=== PATIENT | male | born 1990 | race Caucasian/White ===

== ENCOUNTER 2020-02-23 19:10 | Inpatient (IN) | payer BC ==
[2020-02-23] MEDS ORDERED: ACETAMINOPHEN TAB 325 MG TAB PO STA (19:24)
[2020-02-23] MEDS: SODIUM CHLORIDE 0.9% 500 ML 500 ML IV SCH ×3 (20:17→20:22)
[2020-02-23] MEDS ORDERED: VANCOMYCIN IV PER PHARMACY 1 EACH MISC MISCELLANE PRN (20:18)
[2020-02-23] MEDS: SODIUM CHLORIDE 0.9% 1,000 ML IV SCH (20:24)
[2020-02-23 20:30] LABS: Appearance,Urine Clear (Clear); Basophils # (A) 0.1 k/uL (0-0.2); Basophils % (A) 0 %; Bilirubin,Urine Negative (Negative); Blood,Urine Negative (Negative); Color,Urine Yellow; Eosinophils # (A) 0.2 k/uL (0-0.7); Eosinophils % (A) 1 %; Glucose,Urine (UA) Negative (Negative); HCT 43.7 % (39.0-53.0); HGB 14.2 gm/dL (13.0-17.5); Ketones,Urine Negative (Negative); Leukocyte Esterase,Urine Negative (Negative); Lymphocytes # (A) 3.5 k/uL (1.0-4.8); Lymphocytes % (A) 16 %; MCH 28.3 pg (25.0-35.0); MCHC 32.5 g/dL (31.0-37.0); MCV 87.2 fL (80.0-100.0); Mean Platelet Volume 6.5; Monocytes # (A) 1.2 k/uL (0-1.0); Monocytes % (A) 6 %; Neutrophils # (A) 16.9 k/uL (1.3-7.7); Neutrophils % (A) 76 %; Nitrite,Urine Negative (Negative); PH, Urine 5.5 (5.0-8.0); Platelet Count 355 k/uL (150-450); Protein,Urine Trace (Negative); RBC 5.01 m/uL (4.30-5.90); RDW 12.9 % (11.5-15.5); Specific Gravity,Urine 1.025 (1.001-1.035); Urobilinogen,Urine <2.0 mg/dL (<2.0); WBC 22.3 k/uL (3.8-10.6)
[2020-02-23] MEDS ORDERED: VANCOMYCIN 2,000 MG in SODIUM CHLORIDE 0.9% 500 ML 500 ML IVPB ONE (20:30)
[2020-02-23 20:39] LABS: ALT 24 U/L (4-49); AST 24 U/L (17-59); African American GFR (CKD) >90 (>60 ml/min/1.73 sqM); Albumin 4.4 g/dL (3.5-5.0); Alkaline Phosphatase 82 U/L (38-126); Anion Gap 8 mmol/L; Blood Urea Nitrogen 14 mg/dL (9-20); Calcium 9.4 mg/dL (8.4-10.2); Carbon Dioxide 24 mmol/L (22-30); Chloride 106 mmol/L (98-107); Glucose 116 mg/dL (74-99); Non-African American GFR(CKD) >90 (>60 ml/min/1.73 sqM); Potassium 3.9 mmol/L (3.5-5.1); Sodium 138 mmol/L (137-145); Total Bilirubin 0.9 mg/dL (0.2-1.3); Total Protein 7.5 g/dL (6.3-8.2)
[2020-02-23 20:40] LABS: INR 0.9 (<1.2); Partial Thromboplastin Time 26.4 sec (22.0-30.0); Prothrombin Time 9.5 sec (9.0-12.0)
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
--- NOTE | 2020-02-23 22:03 | CT ---
EXAMINATION TYPE: CT lower leg LT w con DATE OF EXAM: 02/23/2020 HISTORY: Left anterior tibia pain and infection. Technique: Department protocol with axial and sagittal and coronal sequences, and multi planar 3-D im aging. Automated exposure control for dose reduction was used. CT DLP: 295.3 mGycm CONTRAST: Performed with IV Contrast, patient injected with 100ml mL of Isovue 300. COMPARISON: None FINDINGS: Imaging was obtained from the knee to the ankle. The skeletal structures have normal appearance. There is soft tissue swelling anterior to the proximal and mid tibia, with edematous reticulation thr oughout the anterior subcutaneous cutaneous adipose compartment. The anterior muscular compartment al so appears mildly edematous. Suggest continued clinical surveillance for the possible development of compartment syndrome. There is no focal fluid collection. There is no soft tissue emphysema. There is no abnormal contrast enhancement. The vasculature is opacified and unremarkable as seen. IMPRESSION: 1. CT FINDINGS CONSISTENT WITH A CLINICAL DIAGNOSIS OF CELLULITIS, DISCUSSED. 2. NORMAL TIBIA AND FIBULA.
[2020-02-23] MEDS ORDERED: NALOXONE 0.4 MG/ML 1 ML VIAL IV PRN (22:12)
[2020-02-23] MEDS ORDERED: IBUPROFEN 600 MG TAB PO STA (22:14)
[2020-02-24] MEDS: ACETAMINOPHEN TAB 325 MG TAB PO PRN ×3 (04:57→15:54)
[2020-02-24] MEDS: SODIUM CHLORIDE 0.9% 1,000 ML IV SCH ×3 (04:58→23:28)
[2020-02-24] MEDS ORDERED: VANCOMYCIN 2,000 MG in SODIUM CHLORIDE 0.9% 500 ML 500 ML IVPB SCH (06:00)
[2020-02-24 08:50] LABS: African American GFR (CKD) >90 (>60 ml/min/1.73 sqM); Non-African American GFR(CKD) >90 (>60 ml/min/1.73 sqM)
[2020-02-24] MEDS: VANCOMYCIN 2,000 MG in SODIUM CHLORIDE 0.9% 500 ML 500 ML IVPB SCH ×2 (11:18→20:13)
--- NOTE | 2020-02-24 12:16 | US ---
EXAMINATION TYPE: US venous doppler duplex LE LT DATE OF EXAM: 02/24/2020 11:21 AM COMPARISON: NONE CLINICAL HISTORY: r/o dvt. Infection of LLE following cut. SIDE PERFORMED: Left TECHNIQUE: The lower extremity deep venous system is examined utilizing real time linear array sonog ashley with graded compression, doppler sonography and color-flow sonography. VESSELS IMAGED: External Iliac Vein (EIV) Common Femoral Vein Deep Femoral Vein Greater Saphenous Vein * Femoral Vein Popliteal Vein Small Saphenous Vein * Proximal Calf Veins (* superficial vessels) There is normal flow, compressibility, vascular waveforms. Left Leg: Negative for DVT IMPRESSION: No evident deep venous arthrosis at or above the left knee.
[2020-02-24 17:41] LABS: HCT 39.5 % (39.0-53.0); MCH 29.1 pg (25.0-35.0); MCHC 32.8 g/dL (31.0-37.0); MCV 88.6 fL (80.0-100.0); Mean Platelet Volume 6.3; Platelet Count 331 k/uL (150-450); RBC 4.46 m/uL (4.30-5.90); RDW 12.8 % (11.5-15.5); WBC 22.9 k/uL (3.8-10.6)
[2020-02-24] MEDS ORDERED: CYCLOBENZAPRINE 10 MG TAB PO PRN (18:02)
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
[2020-02-24] MEDS: HEPARIN SODIUM,PORCINE 5,000 UNIT/ML 1 ML VIAL SQ SCH (21:18)
[2020-02-24] MEDS: FAMOTIDINE 20 MG/2 ML VIAL IV SCH (21:18)
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
[2020-02-25] MEDS: VANCOMYCIN 2,000 MG in SODIUM CHLORIDE 0.9% 500 ML 500 ML IVPB SCH ×3 (03:26→19:08)
[2020-02-25 07:58] LABS: African American GFR (CKD) >90 (>60 ml/min/1.73 sqM); Anion Gap 7 mmol/L; Blood Urea Nitrogen 7 mg/dL (9-20); Calcium 8.8 mg/dL (8.4-10.2); Carbon Dioxide 24 mmol/L (22-30); Chloride 107 mmol/L (98-107); Creatine Kinase 59 U/L (55-170); Glucose 97 mg/dL (74-99); Non-African American GFR(CKD) >90 (>60 ml/min/1.73 sqM); Sodium 138 mmol/L (137-145)
[2020-02-25 08:17] LABS: Basophils # (A) 0.1 k/uL (0-0.2); Basophils % (A) 0 %; Eosinophils # (A) 0.2 k/uL (0-0.7); Eosinophils % (A) 1 %; HCT 38.2 % (39.0-53.0); HGB 12.4 gm/dL (13.0-17.5); Lymphocytes # (A) 3.6 k/uL (1.0-4.8); Lymphocytes % (A) 18 %; MCHC 32.4 g/dL (31.0-37.0); MCV 89.4 fL (80.0-100.0); Mean Platelet Volume 6.6; Monocytes # (A) 1.1 k/uL (0-1.0); Monocytes % (A) 6 %; Neutrophils % (A) 74 %; Platelet Count 309 k/uL (150-450); RBC 4.28 m/uL (4.30-5.90); RDW 12.9 % (11.5-15.5); WBC 20.2 k/uL (3.8-10.6)
[2020-02-25 08:21] LABS: C Reactive Protein 166.6 mg/L (<10.0)
[2020-02-25] MEDS: FAMOTIDINE 20 MG/2 ML VIAL IV SCH ×2 (08:25→20:39)
[2020-02-25] MEDS: HEPARIN SODIUM,PORCINE 5,000 UNIT/ML 1 ML VIAL SQ SCH ×2 (08:25→20:40)
[2020-02-25] MEDS: SODIUM CHLORIDE 0.9% 1,000 ML IV SCH ×3 (08:26→20:45)
[2020-02-25] MEDS: ACETAMINOPHEN TAB 325 MG TAB PO PRN ×2 (12:06→18:05)
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
[2020-02-25] MEDS ORDERED: VANCOMYCIN TROUGH DUE 1 EACH MISC MISCELLANE ONE (18:00)
--- NOTE | 2020-02-25 19:50 | P.PN ---
Subjective this is a pleasant 29 years old maleno significant past medical history who presents with 2 days left leg swelling, warmth and tenderness, and there is a scraping wound in the middle of the left leg. Patient reports he had a trauma about one month ago with machine but his legs were fine until 2 days ago. He still have some linear streak wound which is superficial in the middle of left leg about 3 inches in length and is horizontal with some area widely open with no discharge, it looks healing however the entire left leg and the distal part of the thigh is swollen, red, warm and tender Left foot looks not swollen with no tenderness or erythema,, no loss of function and no numbness and dorsalis pedis present. He denies chest pain or dyspnea and no other complaints He denies smoking, alcohol or illicit drugs Showing leukocytosis of 22.9K, rest of CBC, INR and BMP is unremarkable. Liver enzymes not elevated. Urinalysis is no suspicious of infection. D-dimer is negative at 0.48 Venous Doppler is negative for the left lower extremity for DVT CT findings consistent with clinical diagnosis of cellulitis Patient is improving regarding his left lower leg cellulitis, swelling which was above the knee yesterday it is coming about 3-4 finger width below the knee with chest tenderness, warmth and redness. Doppler of the lower extremity is negative for DVT Infectious disease on the case and patient is on cefazolin and vancomycin All his questions were answered Objective - Vital Signs Vital signs: Vital Signs Temp 98.3 F 02/25/20 14:32 Pulse 88 02/25/20 14:32 Resp 16 02/25/20 19:05 BP 137/88 02/25/20 14:32 Pulse Ox 96 02/25/20 14:32 Intake & Output 02/25/20 02/25/20 02/26/20 06:59 18:59 06:59 Intake Total 1540 Output Total 500 Balance 1540 -500 Intake: Intake, IV Titration 1540 Amount Sodium Chloride 0.9% 1, 1040 000 ml @ 130 mls/hr IV . [id number] [facility] Rx#:[id number] Vancomycin 2,000 mg In 500 Sodium Chloride 0.9% 500 ml 500 ml @ 167 mls/hr IVPB Q8H [facility] Rx#: [id number] Output: Urine 500 Other: Voiding Method Toilet Toilet Toilet Urinal # Voids 3 2 - Exam GENERAL: The patient is alert and oriented x3, not in any acute distress. Well developed, well nourished. HEENT: Pupils are round and equally reacting to light. EOMI. No scleral icterus. No conjunctival pallor. Normocephalic, atraumatic. No pharyngeal erythema. No thyromegaly. CARDIOVASCULAR: S1 and S2 present. No murmurs, rubs, or gallops. PULMONARY: Chest is clear to auscultation, no wheezing or crackles. ABDOMEN: Soft, nontender, nondistended, normoactive bowel sounds. No palpable organomegaly. MUSCULOSKELETAL: No joint swelling or deformity. -EXTREMITIES: No cyanosis, clubbing, or pedal edema. Improving cellulitis of the left lower leg with less swelling, tenderness, warmth and redness NEUROLOGICAL: Gross neurological examination did not reveal any focal deficits. SKIN: No rashes. no petechiae. - Labs CBC & Chem 7: 02/25/20 06:58 02/25/20 06:58 Labs: Abnormal Lab Results - Last 24 Hours (Table) 02/25/20 02/25/20 Range/Units 06:58 06:58 WBC 20.2 H (3.8-10.6) k/uL RBC 4.28 L (4.30-5.90) m/uL Hgb 12.4 L (13.0-17.5) gm/dL Hct 38.2 L (39.0-53.0) % Neutrophils # 15.0 H (1.3-7.7) k/uL Monocytes # 1.1 H (0-1.0) k/uL BUN 7 L (9-20) mg/dL C-Reactive Protein 166.6 H (<10.0) mg/L Microbiology - Last 24 Hours (Table) 02/23/20 21:27 Gram Stain - Final Leg - Right Wound Culture - Final Staphylococcus aureus 02/23/20 20:05 Blood Culture - Preliminary Blood No Growth after 24 hours 02/23/20 20:05 Blood Culture - Preliminary Blood No Growth after 24 hours Assessment and Plan Assessment: Left leg cellulitis Plan: This is a pleasant 29 years old male who presents with left leg cellulitis. Continue cefazolin and vancomycin as per ID team recommendation. Follow-up labs Labs and medication were reviewed.. Continue same treatment. Continue with symptomatic treatment. Resume home medication. Monitor lytes and vitals. DVT and GI prophylaxis. Further recommendations of the clinical course of the patient DVT prophylaxis: Subcutaneous heparin GI Prophylaxis: Pepcid
[2020-02-25] MEDS ORDERED: diphenhydrAMINE 25 MG CAP PO PRN (20:12)
[2020-02-26] MEDS: SODIUM CHLORIDE 0.9% 1,000 ML IV SCH ×3 (03:32→18:15)
[2020-02-26] MEDS: VANCOMYCIN 2,000 MG in SODIUM CHLORIDE 0.9% 500 ML 500 ML IVPB SCH ×2 (03:34→11:42)
[2020-02-26 07:55] LABS: African American GFR (CKD) >90 (>60 ml/min/1.73 sqM); Non-African American GFR(CKD) >90 (>60 ml/min/1.73 sqM)
[2020-02-26] MEDS: HEPARIN SODIUM,PORCINE 5,000 UNIT/ML 1 ML VIAL SQ SCH ×2 (08:32→20:09)
[2020-02-26] MEDS: FAMOTIDINE 20 MG/2 ML VIAL IV SCH ×2 (08:32→20:09)
[2020-02-26] MEDS: valACYclovir 500 MG TAB PO SCH ×3 (11:41→20:12)
--- NOTE | 2020-02-26 14:36 | US ---
EXAMINATION TYPE: US extremity nonvasc mass LT DATE OF EXAM: 02/26/2020 COMPARISON: NONE CLINICAL HISTORY: r/o abscess . Patient had injury to top of left byrne where skin in red, some areas have scabbed over but there remains a small open wound with purulent material seen. Complex fluid collection that spans the width of area of injury with mobile debris seen, measuring at least 5 cm x 0.8 cm. There is no internal color Doppler flow within this fluid collection. There is mild overlying subcutaneous edema. IMPRESSION: In region of left byrne open wound, there is a elongated fluid collection with mobile arnaldo ris most likely representing abscess.
--- NOTE | 2020-02-26 17:40 | P.PN ---
Subjective this is a pleasant 29 years old maleno significant past medical history who presents with 2 days left leg swelling, warmth and tenderness, and there is a scraping wound in the middle of the left leg. Patient reports he had a trauma about one month ago with machine but his legs were fine until 2 days ago. He still have some linear streak wound which is superficial in the middle of left leg about 3 inches in length and is horizontal with some area widely open with no discharge, it looks healing however the entire left leg and the distal part of the thigh is swollen, red, warm and tender Left foot looks not swollen with no tenderness or erythema,, no loss of function and no numbness and dorsalis pedis present. He denies chest pain or dyspnea and no other complaints He denies smoking, alcohol or illicit drugs Showing leukocytosis of 22.9K, rest of CBC, INR and BMP is unremarkable. Liver enzymes not elevated. Urinalysis is no suspicious of infection. D-dimer is negative at 0.48 Venous Doppler is negative for the left lower extremity for DVT CT findings consistent with clinical diagnosis of cellulitis 02/25/20 Patient is improving regarding his left lower leg cellulitis, swelling which was above the knee yesterday it is coming about 3-4 finger width below the knee with chest tenderness, warmth and redness. Doppler of the lower extremity is negative for DVT Infectious disease on the case and patient is on cefazolin and vancomycin All his questions were answered 02/26/20 his left lower extremity cellulitis is improving, and there is suspicion for fluctuant swelling so ultrasound of the lower extremities ordered to rule out a bscess He has some Vscicuelar rash on the right side of his face as well as eyebrow on the right cheek, suspicious for herpes zoster and patient was started on Valtrex Objective - Vital Signs Vital signs: Vital Signs Temp 97.8 F 02/26/20 14:53 Pulse 89 02/26/20 14:53 Resp 17 02/26/20 14:53 BP 133/85 02/26/20 14:53 Pulse Ox 96 02/26/20 14:53 Intake & Output 02/25/20 02/26/20 02/26/20 18:59 06:59 18:59 Output Total 500 750 Balance -500 -750 Output: Urine 500 750 Other: Voiding Method Toilet Toilet Toilet Urinal Urinal # Voids 2 1 2 # Bowel Movements 1 - Exam GENERAL: The patient is alert and oriented x3, not in any acute distress. Well developed, well nourished. HEENT: Pupils are round and equally reacting to light. EOMI. No scleral icterus. No conjunctival pallor. Normocephalic, atraumatic. No pharyngeal erythema. No thyromegaly. CARDIOVASCULAR: S1 and S2 present. No murmurs, rubs, or gallops. PULMONARY: Chest is clear to auscultation, no wheezing or crackles. ABDOMEN: Soft, nontender, nondistended, normoactive bowel sounds. No palpable organomegaly. MUSCULOSKELETAL: No joint swelling or deformity. -EXTREMITIES: No cyanosis, clubbing, or pedal edema. Improving cellulitis of the left lower leg with less swelling, tenderness, warmth and redness NEUROLOGICAL: Gross neurological examination did not reveal any focal deficits. SKIN: No rashes. no petechiae. - Labs CBC & Chem 7: 02/25/20 06:58 02/26/20 07:30 Labs: Microbiology - Last 24 Hours (Table) 02/23/20 20:05 Blood Culture - Preliminary Blood No Growth after 48 hours 02/23/20 20:05 Blood Culture - Preliminary Blood No Growth after 48 hours 02/23/20 21:27 Gram Stain - Final Leg - Right Wound Culture - Final Staphylococcus aureus Assessment and Plan Assessment: Left leg cellulitis Right facial herpes zoster Plan: This is a pleasant 29 years old male who presents with left leg cellulitis. Continue cefazolin and vancomycin as per ID team recommendation. Follow-up lab s. Add Valtrex Labs and medication were reviewed.. Continue same treatment. Continue with symptomatic treatment. Resume home medication. Monitor lytes and vitals. DVT and GI prophylaxis. Further recommendations of the clinical course of the patient DVT prophylaxis: Subcutaneous heparin GI Prophylaxis: Pepcid
--- NOTE | 2020-02-26 21:54 | PN ---
PROGRESS NOTE DATE OF SERVICE: 02/26/2020 REASON FOR FOLLOWUP: 1. Left leg abscess and cellulitis. 2. Facial rash with question of herpes. INTERVAL HISTORY: The patient is currently afebrile. The left leg pain and swelling is minimally decreased. Still painful to walk on it. Denies having any chest pain, shortness of breath or cough, abdominal pain. Has developed a rash on the right side of the face and the right forehead area. The patient mentioned he usually gets rash when he is stressed out and the previous diagnosis of herpes. EXAM: His blood pressure is 163/74 with a pulse of 90, temperature of 99.6. He is 98% on room air. General description is a middle-aged male lying in bed in no distress. Respiratory system: Unlabored breathing, clear to auscultation anteriorly. Heart S1, S2. Regular rate and rhythm. Abdomen soft, no tenderness. Left leg swelling and redness minimally decreased, no drainage. Examination of the skin, he did have rash to the right cheek and the right eyebrow area. LABS: No CBC was done today. Creatinine 0.95. Ultrasound has been suggestive of abscess and local culture with MSSA blood culture negative. DIAGNOSTIC IMPRESSION AND PLAN: 1. Patient with left lower extremity abscess and cellulitis. CT was negative. However, ultrasound suspicious for an abscess. Surgery has been consulted. Antibiotic will be adjusted to cefazolin 2 grams q.8 hours. Vancomycin discontinued with culture positive for MSSA. 2. Rash with concern for possible herpes. Swab has been obtained for ( ) and PCR. ( ) see clinical response to it. MMODL / IJN: [id number] /
[2020-02-27] MEDS: SODIUM CHLORIDE 0.9% 1,000 ML IV SCH ×3 (00:49→23:52)
[2020-02-27] MEDS: FAMOTIDINE 20 MG/2 ML VIAL IV SCH ×2 (08:14→22:00)
[2020-02-27] MEDS: HEPARIN SODIUM,PORCINE 5,000 UNIT/ML 1 ML VIAL SQ SCH ×2 (08:14→22:00)
[2020-02-27] MEDS: valACYclovir 500 MG TAB PO SCH ×3 (08:15→22:01)
[2020-02-27 08:34] LABS: Basophils # (A) 0.1 k/uL (0-0.2); Basophils % (A) 1 %; Eosinophils # (A) 0.4 k/uL (0-0.7); Eosinophils % (A) 4 %; HCT 40.5 % (39.0-53.0); HGB 12.9 gm/dL (13.0-17.5); Lymphocytes # (A) 2.7 k/uL (1.0-4.8); Lymphocytes % (A) 24 %; MCH 28.9 pg (25.0-35.0); MCHC 31.9 g/dL (31.0-37.0); MCV 90.5 fL (80.0-100.0); Mean Platelet Volume 6.8; Monocytes # (A) 0.5 k/uL (0-1.0); Monocytes % (A) 5 %; Neutrophils # (A) 7.1 k/uL (1.3-7.7); Neutrophils % (A) 65 %; Platelet Count 378 k/uL (150-450); RBC 4.47 m/uL (4.30-5.90); RDW 12.8 % (11.5-15.5)
[2020-02-27 08:37] LABS: African American GFR (CKD) >90 (>60 ml/min/1.73 sqM); Anion Gap 10 mmol/L; Blood Urea Nitrogen 10 mg/dL (9-20); Calcium 9.2 mg/dL (8.4-10.2); Carbon Dioxide 21 mmol/L (22-30); Chloride 109 mmol/L (98-107); Glucose 92 mg/dL (74-99); Non-African American GFR(CKD) >90 (>60 ml/min/1.73 sqM); Potassium 4.4 mmol/L (3.5-5.1); Sodium 140 mmol/L (137-145)
[2020-02-27] MEDS ORDERED: LIDOCAINE 1% INJ 10MG/ML (20 ML MDV) SQ ONE (09:47)
[2020-02-27] MEDS ORDERED: VANCOMYCIN TROUGH DUE 1 EACH MISC MISCELLANE ONE (10:00)
--- NOTE | 2020-02-27 11:48 | P.GSCN ---
History of Present Illness Consult date: 02/27/20 Reason for Consult: Left byrne abscess History of present illness: Patient hospitalized on 02/23 with complaints of left leg swelling and redness. Patient had a superficial laceration 1 month ago when he flipped his skid steer. States he was treated in the emergency department with skin glue. Thought was doing better. Only recently became more swollen and more painful. White blood cell count was significantly elevated on arrival. Had low-grade fevers 100.2 on arrival. Computed tomography scan of the leg showed no evidence of definite abscess or osteomyelitis. Venous Doppler normal. Patient then had ultrasound yesterday showing possible abscess with 5 x 1 cm fluid collection. Review of Systems The patient denies any acute changes in vision or hearing, no dysphagia or odynophagia, no chest pain or shortness of breath, no dysuria or hematuria, no headache, no runny nose, no rectal bleeding or melena, no unexplained weight loss Past Medical History Past Medical History: No Reported History History of Any Multi-Drug Resistant Organisms: None Reported Additional Past Surgical History / Comment(s): oral Past Anesthesia/Blood Transfusion Reactions: No Reported Reaction Past Psychological History: No Psychological Hx Reported Smoking Status: Never smoker Past Alcohol Use History: Occasional Past Drug Use History: None Reported Medications and Allergies Home Medications Medication Instructions Recorded Confirmed Type Acetaminophen [Tylenol] 1,000 mg PO Q6H PRN 02/23/20 02/23/20 History Cephalexin [Keflex] 500 mg PO Q6HR 02/23/20 02/23/20 History Cyclobenzaprine [Flexeril] 10 mg PO BID 02/23/20 02/23/20 History Ibuprofen [Motrin] 800 mg PO TID PRN 02/23/20 02/23/20 History Allergies Allergy/AdvReac Type Severity Reaction Status Date / Time Sulfa (Sulfonamide Allergy Unknown Verified 02/23/20 21:46 Antibiotics) Surgical - Exam Vital Signs Temp Pulse Resp BP Pulse Ox 100.0 F H 122 H 18 147/79 96 02/23/20 19:18 02/23/20 19:18 02/23/20 19:18 02/23/20 19:18 02/23/20 19:18 Physical exam: General: Well-developed, well-nourished HEENT: Normocephalic, sclerae nonicteric Abdomen: Nontender, nondistended Extremities: Swelling left anterolateral byrne with evidence of previous abrasion/laceration. Erythema and tenderness in that area. Some fluctuance along the medial aspect of the previous scar site. Neuro: Alert and oriented Results - Labs 02/27/20 07:43 02/27/20 07:43 Abnormal Lab Results - Last 24 Hours (Table) 02/27/20 02/27/20 Range/Units 07:43 07:43 WBC 11.0 H (3.8-10.6) k/uL Hgb 12.9 L (13.0-17.5) gm/dL Chloride 109 H (98-107) mmol/L Carbon Dioxide 21 L (22-30) mmol/L Microbiology - Last 24 Hours (Table) 02/23/20 20:05 Blood Culture - Preliminary Blood No Growth after 72 hours 02/23/20 20:05 Blood Culture - Preliminary Blood No Growth after 72 hours Diabetes panel 02/27/20 Range/Units 07:43 Sodium 140 (137-145) mmol/L Potassium 4.4 (3.5-5.1) mmol/L Chloride 109 H (98-107) mmol/L Carbon Dioxide 21 L (22-30) mmol/L BUN 10 (9-20) mg/dL Creatinine 0.97 (0.66-1.25) mg/dL Glucose 92 (74-99) mg/dL Calcium 9.2 (8.4-10.2) mg/dL Calcium panel 02/27/20 Range/Units 07:43 Calcium 9.2 (8.4-10.2) mg/dL Pituitary panel 02/27/20 Range/Units 07:43 Sodium 140 (137-145) mmol/L Potassium 4.4 (3.5-5.1) mmol/L Chloride 109 H (98-107) mmol/L Carbon Dioxide 21 L (22-30) mmol/L BUN 10 (9-20) mg/dL Creatinine 0.97 (0.66-1.25) mg/dL Glucose 92 (74-99) mg/dL Calcium 9.2 (8.4-10.2) mg/dL Adrenal panel 02/27/20 Range/Units 07:43 Sodium 140 (137-145) mmol/L Potassium 4.4 (3.5-5.1) mmol/L Chloride 109 H (98-107) mmol/L Carbon Dioxide 21 L (22-30) mmol/L BUN 10 (9-20) mg/dL Creatinine 0.97 (0.66-1.25) mg/dL Glucose 92 (74-99) mg/dL Calcium 9.2 (8.4-10.2) mg/dL Assessment and Plan (1) Abscess of left leg Narrative/Plan: 29-year-old male with developing abscess left leg after recent traumatic injury 1 month ago. Options reviewed. We'll proceed with incision and drainage at this time. Continue antibiotics. Risks of bleeding, infection, scarring reviewed. He understands and wishes to proceed. Current Visit: Yes Status: Acute Code(s): L02.416 - CUTANEOUS ABSCESS OF LEFT LOWER LIMB SNOMED Code(s): 693205414
[2020-02-27] MEDS: KETOROLAC 15 MG/ML 1 ML VIAL IVP SCH ×2 (11:49→17:16)
--- NOTE | 2020-02-27 11:50 | P.OP ---
Date of Procedure: 02/27/20 Procedure(s) Performed: PREOPERATIVE DIAGNOSIS: Left leg abscess POSTOPERATIVE DIAGNOSIS: Same PROCEDURE: Incision and drainage left leg abscess SURGEON: Danny EBL: 2 mL ANESTHESIA: Local COMPLICATIONS: None OPERATIVE PROCEDURE: Patient was kept in his room for the procedure. The anterior lateral aspect of the left leg was prepped and draped sterilely. The skin was localized with 1% lidocaine. Medially at the site of previous laceration there was a scab present that was excised sharply. This incision measured 2 x 0.6 cm. Entrance into a subcutaneous fluid collection occurred bluntly. The fluid was a cloudy serous appearance. Cultures were taken. Using a probe I was unable to identify tracking of this wound laterally and inferiorly along the entire tract of the previous scar. The pocket came right up to the skin surface at the lateral aspect of the scar site. That area was then localized and a counterincision was made measuring 1.5 cm in length. We then had a tunnel between our 2 incision sites. This was irrigated with saline. Some purulence was identified. Some necrotic fat was also seen coming from the irrigation site. The wound was then packed with iodophor gauze. DISPOSITION: Stable
--- NOTE | 2020-02-27 21:56 | P.PN ---
Subjective this is a pleasant 29 years old maleno significant past medical history who presents with 2 days left leg swelling, warmth and tenderness, and there is a scraping wound in the middle of the left leg. Patient reports he had a trauma about one month ago with machine but his legs were fine until 2 days ago. He still have some linear streak wound which is superficial in the middle of left leg about 3 inches in length and is horizontal with some area widely open with no discharge, it looks healing however the entire left leg and the distal part of the thigh is swollen, red, warm and tender Left foot looks not swollen with no tenderness or erythema,, no loss of function and no numbness and dorsalis pedis present. He denies chest pain or dyspnea and no other complaints He denies smoking, alcohol or illicit drugs Showing leukocytosis of 22.9K, rest of CBC, INR and BMP is unremarkable. Liver enzymes not elevated. Urinalysis is no suspicious of infection. D-dimer is negative at 0.48 Venous Doppler is negative for the left lower extremity for DVT CT findings consistent with clinical diagnosis of cellulitis 02/25/20 Patient is improving regarding his left lower leg cellulitis, swelling which was above the knee yesterday it is coming about 3-4 finger width below the knee with chest tenderness, warmth and redness. Doppler of the lower extremity is negative for DVT Infectious disease on the case and patient is on cefazolin and vancomycin All his questions were answered 02/26/20 his left lower extremity cellulitis is improving, and there is suspicion for fluctuant swelling so ultrasound of the lower extremities ordered to rule out a bscess He has some Vscicuelar rash on the right side of his face as well as eyebrow on the right cheek, suspicious for herpes zoster and patient was started on Valtrex 02/27/20 Patient looks alert this is improving, his status post opening of the skin abscess of the left leg 1 x 5 cm, probe was applied and the wound is irrigated with purulent discharge cleaned. Once cultures are growing MSSA, infectious disease of the case, his on cefazolin already. And his herpes infection of the face is also improvement with Valtrex, no blurred vision or other visual complaints Father was at bedside and all questions were answered Surgeon and infectious disease on the case Objective - Vital Signs Vital signs: Vital Signs Temp 98.0 F 02/27/20 14:48 Pulse 83 02/27/20 14:48 Resp 20 02/27/20 14:48 BP 135/84 02/27/20 14:48 Pulse Ox 97 02/27/20 14:48 Intake & Output 02/26/20 02/27/20 02/27/20 18:59 06:59 18:59 Intake Total 520 Output Total 600 Balance -600 520 Intake: Oral 520 Output: Urine 600 Other: Voiding Method Toilet Toilet Toilet Urinal Urinal Urinal # Voids 2 1 2 # Bowel Movements 1 - Exam GENERAL: The patient is alert and oriented x3, not in any acute distress. Well developed, well nourished. HEENT: Pupils are round and equally reacting to light. EOMI. No scleral icterus. No conjunctival pallor. Normocephalic, atraumatic. No pharyngeal erythema. No thyromegaly. CARDIOVASCULAR: S1 and S2 present. No murmurs, rubs, or gallops. PULMONARY: Chest is clear to auscultation, no wheezing or crackles. ABDOMEN: Soft, nontender, nondistended, normoactive bowel sounds. No palpable organomegaly. MUSCULOSKELETAL: No joint swelling or deformity. -EXTREMITIES: No cyanosis, clubbing, or pedal edema. Improving cellulitis of the left lower leg with less swelling, tenderness, warmth and redness NEUROLOGICAL: Gross neurological examination did not reveal any focal deficits. SKIN: No rashes. no petechiae. - Labs CBC & Chem 7: 02/27/20 07:43 02/27/20 07:43 Labs: Abnormal Lab Results - Last 24 Hours (Table) 02/27/20 02/27/20 Range/Units 07:43 07:43 WBC 11.0 H (3.8-10.6) k/uL Hgb 12.9 L (13.0-17.5) gm/dL Chloride 109 H (98-107) mmol/L Carbon Dioxide 21 L (22-30) mmol/L Microbiology - Last 24 Hours (Table) 02/27/20 11:20 Wound Culture - Preliminary Leg - Left 02/27/20 11:20 Anaerobic Culture - Preliminary Leg - Left 02/23/20 20:05 Blood Culture - Preliminary Blood No Growth after 72 hours 02/23/20 20:05 Blood Culture - Preliminary Blood No Growth after 72 hours Assessment and Plan Assessment: Left leg cellulitis Right facial herpes zoster Plan: This is a pleasant 29 years old male who presents with left leg cellulitis. Continue cefazolin and vancomycin as per ID team recommendation. Follow-up labs. Add Valtrex Labs and medication were reviewed.. Continue same treatment. Continue with symptomatic treatment. Resume home medication. Monitor lytes and vitals. DVT and GI prophylaxis. Further recommendations of the clinical course of the patient DVT prophylaxis: Subcutaneous heparin GI Prophylaxis: Pepcid
[2020-02-28] MEDS: KETOROLAC 15 MG/ML 1 ML VIAL IVP SCH ×4 (01:06→17:48)
[2020-02-28] MEDS: SODIUM CHLORIDE 0.9% 1,000 ML IV SCH ×3 (01:08→17:24)
--- NOTE | 2020-02-28 06:06 | PN ---
PROGRESS NOTE DATE OF SERVICE: 02/27/2020 REASON FOR FOLLOWUP: Left leg abscess and cellulitis. . INTERVAL HISTORY: The patient is currently afebrile. The patient did have bedside drainage of the left leg abscess. Patient has tolerated the procedure. Patient denies having any chest pain or shortness of breath or cough. No nausea, no vomiting. No abdominal pain or diarrhea. PHYSICAL EXAMINATION: Blood pressure is 142/92 with a pulse of 79, temperature 98.1. He is 97% on room air. General description is a middle-aged male lying in bed in no distress. RESPIRATORY SYSTEM: Unlabored breathing, clear to auscultation anteriorly. HEART: S1, S2. Regular rate and rhythm. ABDOMEN: Soft, no tenderness. Left leg is currently dressed up. No obvious drainage on the dressing. LABS: Hemoglobin is 12.9, white count 11, BUN of 10, creatinine 0.97. DIAGNOSTIC IMPRESSION AND PLAN: 1. Patient with left leg wound abscess and cellulitis status post surgical drainage. The patient is covered with cefazolin 2 grams q.8 to continue and monitor his clinical course closely. 2. Patient with rash to the right maxillary and the frontal area with concern for wound for herpetic lesion is the local as well as serology is pending. Continue with Valtrex and we will monitor his kidney function closely. MMODL / IJN: [id number] /
[2020-02-28] MEDS: valACYclovir 500 MG TAB PO SCH ×3 (08:16→21:29)
[2020-02-28] MEDS: FAMOTIDINE 20 MG/2 ML VIAL IV SCH (08:17)
[2020-02-28] MEDS: HEPARIN SODIUM,PORCINE 5,000 UNIT/ML 1 ML VIAL SQ SCH ×2 (08:17→21:27)
[2020-02-28 09:21] LABS: Basophils # (A) 0.1 k/uL (0-0.2); Basophils % (A) 1 %; Eosinophils # (A) 0.4 k/uL (0-0.7); Eosinophils % (A) 4 %; HCT 39.3 % (39.0-53.0); HGB 12.6 gm/dL (13.0-17.5); Lymphocytes # (A) 3.3 k/uL (1.0-4.8); Lymphocytes % (A) 33 %; MCH 28.4 pg (25.0-35.0); MCHC 31.9 g/dL (31.0-37.0); MCV 89.1 fL (80.0-100.0); Mean Platelet Volume 6.8; Monocytes # (A) 0.4 k/uL (0-1.0); Monocytes % (A) 4 %; Neutrophils # (A) 5.7 k/uL (1.3-7.7); Neutrophils % (A) 57 %; Platelet Count 391 k/uL (150-450); RBC 4.42 m/uL (4.30-5.90)
[2020-02-28 09:40] LABS: African American GFR (CKD) >90 (>60 ml/min/1.73 sqM); Anion Gap 5 mmol/L; Blood Urea Nitrogen 13 mg/dL (9-20); Calcium 9.1 mg/dL (8.4-10.2); Carbon Dioxide 24 mmol/L (22-30); Chloride 108 mmol/L (98-107); Glucose 92 mg/dL (74-99); Non-African American GFR(CKD) >90 (>60 ml/min/1.73 sqM); Potassium 4.7 mmol/L (3.5-5.1); Sodium 137 mmol/L (137-145)
--- NOTE | 2020-02-28 15:34 | PN ---
PROGRESS NOTE DATE OF SERVICE: 02/28/2020 REASON FOR FOLLOWUP: Left leg wound and cellulitis. INTERVAL HISTORY: Patient is currently afebrile, patient is breathing comfortably. Denies having any chest pain. No shortness of breath or cough. Pain to the left leg is currently controlled. No nausea, no vomiting, no abdominal pain or diarrhea. PHYSICAL EXAMINATION: Blood pressure 154/95 with a pulse of 74, temperature 98.1, he is 97% on room air. General description is a middle-aged male, lying in bed in no distress. RESPIRATORY SYSTEM: Unlabored breathing, clear to auscultation anteriorly. HEART: S1, S2. Regular rate and rhythm. ABDOMEN: Left leg still has significant swelling, redness has decreased. LABS: Hemoglobin is 12.8, white count is 10.0, BUN of 13, creatinine 0.97. DIAGNOSTIC IMPRESSION AND PLAN: Patient with left leg abscess and cellulitis, status post surgical drainage. Still has significant amount of inflammation and may benefit from outpatient antibiotic therapy. This has been discussed with the case technician working on it, continue cefazolin at this point and monitor clinical course closely. MMODL / IJN: [id number] /
[2020-02-28 15:54] LABS: HSV I IgG Interp POSITIVE (NEGATIVE); HSV II IgG Interp NEGATIVE (NEGATIVE)
--- NOTE | 2020-02-28 16:04 | P.PN ---
Subjective Progress Note Date: 02/28/20 Principal diagnosis: Right leg abscess Patient doing better today. Pain is improved after incision and drainage. White blood cell count is 10. Gram stain noted. Objective - Vital Signs Vital signs: Vital Signs Temp 98.1 F 02/28/20 07:00 Pulse 74 02/28/20 07:00 Resp 18 02/28/20 07:00 BP 154/95 02/28/20 07:00 Pulse Ox 97 02/28/20 07:00 Intake & Output 02/27/20 02/28/20 02/28/20 18:59 06:59 18:59 Intake Total 520 930 296 Balance 520 930 296 Intake: Intake, IV Titration 330 Amount Sodium Chloride 0.9% 1, 280 000 ml @ 130 mls/hr IV . Q7H42M [facility] Rx#:[id number] ceFAZolin 2 gm In Sodium 50 Chloride 0.9% 50 ml @ 100 mls/hr IVPB Q8HR [facility] Rx# :[id number] Oral 520 600 296 Other: Voiding Method Toilet Toilet Urinal Urinal # Voids 2 1 - Exam Right leg with decreased erythema and edema, mild tenderness, packing in place - Labs CBC & Chem 7: 02/28/20 08:35 02/28/20 08:35 Labs: Abnormal Lab Results - Last 24 Hours (Table) 02/27/20 02/28/20 02/28/20 Range/Units 07:43 08:35 08:35 Hgb 12.6 L (13.0-17.5) gm/dL Chloride 108 H (98-107) mmol/L HSV I IgG Interpret POSITIVE H (NEGATIVE) Microbiology - Last 24 Hours (Table) 02/27/20 11:20 Gram Stain - Preliminary Leg - Left Wound Culture - Preliminary 02/23/20 20:05 Blood Culture - Preliminary Blood No Growth after 96 hours 02/23/20 20:05 Blood Culture - Preliminary Blood No Growth after 96 hours 02/27/20 11:20 Anaerobic Culture - Preliminary Leg - Left Assessment and Plan (1) Abscess of left leg Narrative/Plan: Will have patient shower and will change iodophor dressing following that. Continue antibiotics. Follow cultures. Current Visit: Yes Status: Acute Code(s): L02.416 - CUTANEOUS ABSCESS OF LEFT LOWER LIMB SNOMED Code(s): 150130539
--- NOTE | 2020-02-28 19:43 | P.PN ---
Subjective this is a pleasant 29 years old maleno significant past medical history who presents with 2 days left leg swelling, warmth and tenderness, and there is a scraping wound in the middle of the left leg. Patient reports he had a trauma about one month ago with machine but his legs were fine until 2 days ago. He still have some linear streak wound which is superficial in the middle of left leg about 3 inches in length and is horizontal with some area widely open with no discharge, it looks healing however the entire left leg and the distal part of the thigh is swollen, red, warm and tender Left foot looks not swollen with no tenderness or erythema,, no loss of function and no numbness and dorsalis pedis present. He denies chest pain or dyspnea and no other complaints He denies smoking, alcohol or illicit drugs Showing leukocytosis of 22.9K, rest of CBC, INR and BMP is unremarkable. Liver enzymes not elevated. Urinalysis is no suspicious of infection. D-dimer is negative at 0.48 Venous Doppler is negative for the left lower extremity for DVT CT findings consistent with clinical diagnosis of cellulitis 02/25/20 Patient is improving regarding his left lower leg cellulitis, swelling which was above the knee yesterday it is coming about 3-4 finger width below the knee with chest tenderness, warmth and redness. Doppler of the lower extremity is negative for DVT Infectious disease on the case and patient is on cefazolin and vancomycin All his questions were answered 02/26/20 his left lower extremity cellulitis is improving, and there is suspicion for fluctuant swelling so ultrasound of the lower extremities ordered to rule out a bscess He has some Vscicuelar rash on the right side of his face as well as eyebrow on the right cheek, suspicious for herpes zoster and patient was started on Valtrex 02/27/20 Patient looks alert this is improving, his status post opening of the skin abscess of the left leg 1 x 5 cm, probe was applied and the wound is irrigated with purulent discharge cleaned. Once cultures are growing MSSA, infectious disease of the case, his on cefazolin already. 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 Cultures growing MSSA, patient remains on cefazolin as per ID team recommendati on His herpetic rash on the face is improving Objective - Vital Signs Vital signs: Vital Signs Temp 98.6 F 02/28/20 15:00 Pulse 75 02/28/20 15:00 Resp 18 02/28/20 15:00 BP 143/88 02/28/20 15:00 Pulse Ox 96 02/28/20 15:00 Intake & Output 02/27/20 02/28/20 02/28/20 18:59 06:59 18:59 Intake Total 520 930 592 Output Total 300 Balance 520 930 292 Intake: Intake, IV Titration 330 Amount Sodium Chloride 0.9% 1, 280 000 ml @ 130 mls/hr IV . Q7H42M [facility] Rx#:[id number] ceFAZolin 2 gm In Sodium 50 Chloride 0.9% 50 ml @ 100 mls/hr IVPB Q8HR [facility] Rx# :[id number] Oral 520 600 592 Output: Urine 300 Other: Voiding Method Toilet Toilet Urinal Urinal # Voids 2 1 - Exam GENERAL: The patient is alert and oriented x3, not in any acute distress. Well developed, well nourished. HEENT: Pupils are round and equally reacting to light. EOMI. No scleral icterus. No conjunctival pallor. Normocephalic, atraumatic. No pharyngeal erythema. No thyromegaly. CARDIOVASCULAR: S1 and S2 present. No murmurs, rubs, or gallops. PULMONARY: Chest is clear to auscultation, no wheezing or crackles. ABDOMEN: Soft, nontender, nondistended, normoactive bowel sounds. No palpable o rganomegaly. MUSCULOSKELETAL: No joint swelling or deformity. -EXTREMITIES: No cyanosis, clubbing, or pedal edema. Improving cellulitis of the left lower leg with less swelling, tenderness, warmth and redness NEUROLOGICAL: Gross neurological examination did not reveal any focal deficits. SKIN: No rashes. no petechiae. - Labs CBC & Chem 7: 02/28/20 08:35 02/28/20 08:35 Labs: Abnormal Lab Results - Last 24 Hours (Table) 02/27/20 02/28/20 02/28/20 Range/Units 07:43 08:35 08:35 Hgb 12.6 L (13.0-17.5) gm/dL Chloride 108 H (98-107) mmol/L HSV I IgG Interpret POSITIVE H (NEGATIVE) Microbiology - Last 24 Hours (Table) 02/27/20 11:20 Gram Stain - Preliminary Leg - Left Wound Culture - Preliminary 02/23/20 20:05 Blood Culture - Preliminary Blood No Growth after 96 hours 02/23/20 20:05 Blood Culture - Preliminary Blood No Growth after 96 hours 02/27/20 11:20 Anaerobic Culture - Preliminary Leg - Left Assessment and Plan Assessment: Left leg cellulitis Right facial herpes zoster Plan: This is a pleasant 29 years old male who presents with left leg cellulitis. Continue cefazolin and vancomycin as per ID team recommendation. Follow-up labs. Add Valtrex Labs and medication were reviewed.. Continue same treatment. Continue with symptomatic treatment. Resume home medication. Monitor lytes and vitals. DVT and GI prophylaxis. Further recommendations of the clinical course of the patient DVT prophylaxis: Subcutaneous heparin GI Prophylaxis: Pepcid
[2020-02-28] MEDS: FAMOTIDINE 20 MG TAB PO SCH (21:26)
[2020-02-29] MEDS: KETOROLAC 15 MG/ML 1 ML VIAL IVP SCH ×5 (00:44→23:16)
[2020-02-29] MEDS: SODIUM CHLORIDE 0.9% 1,000 ML IV SCH ×2 (00:49→23:16)
[2020-02-29] MEDS: HEPARIN SODIUM,PORCINE 5,000 UNIT/ML 1 ML VIAL SQ SCH ×2 (08:00→22:36)
[2020-02-29] MEDS: valACYclovir 500 MG TAB PO SCH ×3 (08:00→22:37)
[2020-02-29] MEDS: FAMOTIDINE 20 MG TAB PO SCH ×2 (08:00→22:37)
[2020-02-29 08:33] LABS: Basophils # (A) 0.1 k/uL (0-0.2); Basophils % (A) 1 %; Eosinophils # (A) 0.6 k/uL (0-0.7); Eosinophils % (A) 6 %; HCT 40.1 % (39.0-53.0); HGB 12.7 gm/dL (13.0-17.5); Lymphocytes # (A) 3.4 k/uL (1.0-4.8); Lymphocytes % (A) 29 %; MCH 28.2 pg (25.0-35.0); MCHC 31.6 g/dL (31.0-37.0); MCV 89.3 fL (80.0-100.0); Mean Platelet Volume 7.3; Monocytes # (A) 0.5 k/uL (0-1.0); Monocytes % (A) 4 %; Neutrophils # (A) 6.7 k/uL (1.3-7.7); Neutrophils % (A) 58 %; Platelet Count 438 k/uL (150-450); RBC 4.49 m/uL (4.30-5.90); RDW 12.9 % (11.5-15.5); WBC 11.5 k/uL (3.8-10.6)
[2020-02-29 09:16] LABS: African American GFR (CKD) >90 (>60 ml/min/1.73 sqM); Anion Gap 7 mmol/L; Blood Urea Nitrogen 13 mg/dL (9-20); Carbon Dioxide 25 mmol/L (22-30); Chloride 108 mmol/L (98-107); Glucose 87 mg/dL (74-99); Non-African American GFR(CKD) >90 (>60 ml/min/1.73 sqM); Potassium 4.9 mmol/L (3.5-5.1); Sodium 140 mmol/L (137-145)
--- NOTE | 2020-02-29 11:37 | P.PN ---
Subjective Progress Note Date: 02/29/20 Principal diagnosis: Right leg abscess Patient says the pain in the left lower cavity is improved. No dressing change at today. He is afebrile. Recent cultures remain negative. Objective - Vital Signs Vital signs: Vital Signs Temp 97.9 F 02/29/20 07:00 Pulse 73 02/29/20 07:00 Resp 18 02/29/20 07:00 BP 131/74 02/29/20 07:00 Pulse Ox 96 02/29/20 07:00 Intake & Output 02/28/20 02/29/20 02/29/20 18:59 06:59 18:59 Intake Total 888 460 Output Total 300 Balance 588 460 Intake: Intake, IV Titration 160 Amount Sodium Chloride 0.9% 1, 160 000 ml @ 130 mls/hr IV . Q7H42M [facility] Rx#:[id number] Oral 888 300 Output: Urine 300 Other: Voiding Method Toilet Urinal # Voids 1 - Exam Left lower cavity erythema slightly improved, mild tenderness, still some purulent drainage from the incision and drainage sites. - Labs CBC & Chem 7: 02/29/20 07:28 02/29/20 07:28 Labs: Abnormal Lab Results - Last 24 Hours (Table) 02/27/20 02/29/20 02/29/20 Range/Units 07:43 07:28 07:28 WBC 11.5 H (3.8-10.6) k/uL Hgb 12.7 L (13.0-17.5) gm/dL Chloride 108 H (98-107) mmol/L HSV I IgG Interpret POSITIVE H (NEGATIVE) Microbiology - Last 24 Hours (Table) 02/27/20 11:20 Anaerobic Culture - Preliminary Leg - Left 02/23/20 20:05 Blood Culture - Preliminary Blood No Growth after 120 hours 02/23/20 20:05 Blood Culture - Preliminary Blood No Growth after 120 hours Assessment and Plan (1) Abscess of left leg Narrative/Plan: Overall patient improved. Continue antibiotics. We'll try to use Aquacel silver rope instead of the iodophor. Current Visit: Yes Status: Acute Code(s): L02.416 - CUTANEOUS ABSCESS OF LEFT LOWER LIMB SNOMED Code(s): 098718703
--- NOTE | 2020-02-29 16:08 | PN ---
PROGRESS NOTE DATE OF SERVICE: 02/29/2020 REASON FOR FOLLOWUP: Left leg abscess and cellulitis MSSA. INTERVAL HISTORY: Patient is currently afebrile, patient is breathing comfortably. Patient denies having any chest pain, no shortness of breath or cough. Left leg pain, swelling has slightly decreased. PHYSICAL EXAMINATION: Blood pressure is 140/97, pulse of 69, temperature 98.4, he is 98% on room air. General description is a middle-aged male, lying in bed in no distress. RESPIRATORY SYSTEM: Unlabored breathing, clear to auscultation anteriorly. HEART: S1, S2. Regular rate and rhythm. ABDOMEN: Soft, no tenderness. Left leg swelling and redness has slightly decreased. LABS: Hemoglobin is 12.1, white count of 11.5. DIAGNOSTIC IMPRESSION AND PLAN: Patient left leg abscess cellulitis status post surgical drainage in view of extensive infection, he will benefit from outpatient IV antibiotics for at least 1 week or 10 days. Waiting for the antibiotic arrangement before discharge. If arranged today, he will be able to go home today, otherwise tomorrow. This was discussed with the case resource manager as well as the admitting physician. MMHOL / IJN: [id number] /
--- NOTE | 2020-02-29 20:26 | P.PN ---
Subjective this is a pleasant 29 years old mal[place] significant past medical history who presents with 2 days left leg swelling, warmth and tenderness, and there is a scraping wound in the middle of the left leg. Patient reports he had a trauma about one month ago with machine but his legs were fine until 2 days ago. He still have some linear streak wound which is superficial in the middle of left leg about 3 inches in length and is horizontal with some area widely open with no discharge, it looks healing however the entire left leg and the distal part of the thigh is swollen, red, warm and tender Left foot looks not swollen with no tenderness or erythema,, no loss of function and no numbness and dorsalis pedis present. He denies chest pain or dyspnea and no other complaints He denies smoking, alcohol or illicit drugs Showing leukocytosis of 22.9K, rest of CBC, INR and BMP is unremarkable. Liver enzymes not elevated. Urinalysis is no suspicious of infection. D-dimer is negative at 0.48 Venous Doppler is negative for the left lower extremity for DVT CT findings consistent with clinical diagnosis of cellulitis 02/25/20 Patient is improving regarding his left lower leg cellulitis, swelling which was above the knee yesterday it is coming about 3-4 finger width below the knee with chest tenderness, warmth and redness. Doppler of the lower extremity is negative for DVT Infectious disease on the case and patient is on cefazolin and vancomycin All his questions were answered 02/26/20 his left lower extremity cellulitis is improving, and there is suspicion for fluctuant swelling so ultrasound of the lower extremities ordered to rule out a bscess He has some Vscicuelar rash on the right side of his face as well as eyebrow on the right cheek, suspicious for herpes zoster and patient was started on Valtrex 02/27/20 Patient looks alert this is improving, his status post opening of the skin abscess of the left leg 1 x 5 cm, probe was applied and the wound is irrigated with purulent discharge cleaned. Once cultures are growing MSSA, infectious disease of the case, his on cefazolin already. 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 Cultures growing MSSA, patient remains on cefazolin as per ID team recommendati on His herpetic rash on the face is improving 02/29/20 Patient cellulitis improving, discussed with infectious disease will need to 10 days of IV antibiotics upon discharge. Plan for PICC line placement, patient informed and he agrees area surgery team input is appreciated Objective - Vital Signs Vital signs: Vital Signs Temp 99.0 F 02/29/20 19:06 Pulse 69 02/29/20 19:19 Resp 16 02/29/20 19:19 BP 157/95 02/29/20 19:06 Pulse Ox 98 02/29/20 19:06 Intake & Output 02/29/20 02/29/20 03/01/20 06:59 18:59 06:59 Intake Total 460 530 Balance 460 530 Intake: Intake, IV Titration 160 50 Amount Sodium Chloride 0.9% 1, 160 000 ml @ 130 mls/hr IV . Q7H42M [facility] Rx#:[id number] ceFAZolin 2 gm In Sodium 50 Chloride 0.9% 50 ml @ 100 mls/hr IVPB Q8HR [facility] Rx# :[id number] Oral 300 480 Other: Voiding Method Toilet Toilet Urinal Urinal # Voids 1 4 - Exam GENERAL: The patient is alert and oriented x3, not in any acute distress. Well developed, well nourished. HEENT: Pupils are round and equally reacting to light. EOMI. No scleral icterus. No conjunctival pallor. Normocephalic, atraumatic. No pharyngeal erythema. No thyromegaly. CARDIOVASCULAR: S1 and S2 present. No murmurs, rubs, or gallops. PULMONARY: Chest is clear to auscultation, no wheezing or crackles. ABDOMEN: Soft, nontender, nondistended, normoactive bowel sounds. No palpable organomegaly. MUSCULOSKELETAL: No joint swelling or deformity. -EXTREMITIES: No cyanosis, clubbing, or pedal edema. Improving cellulitis of the left lower leg with less swelling, tenderness, warmth and redness NEUROLOGICAL: Gross neurological examination did not reveal any focal deficits. SKIN: No rashes. no petechiae. - Labs CBC & Chem 7: 02/29/20 07:28 02/29/20 07:28 Labs: Abnormal Lab Results - Last 24 Hours (Table) 02/29/20 02/29/20 Range/Units 07:28 07:28 WBC 11.5 H (3.8-10.6) k/uL Hgb 12.7 L (13.0-17.5) gm/dL Chloride 108 H (98-107) mmol/L Microbiology - Last 24 Hours (Table) 02/27/20 11:20 Gram Stain - Preliminary Leg - Left Wound Culture - Preliminary Presumptive Staph aureus 02/27/20 11:20 Anaerobic Culture - Preliminary Leg - Left 02/23/20 20:05 Blood Culture - Preliminary Blood No Growth after 120 hours 02/23/20 20:05 Blood Culture - Preliminary Blood No Growth after 120 hours Assessment and Plan Assessment: Left leg cellulitis Right facial herpes zoster Plan: This is a pleasant 29 years old male who presents with left leg cellulitis. Continue cefazolin and vancomycin as per ID team recommendation. Follow-up labs. Add Valtrex Labs and medication were reviewed.. Continue same treatment. Continue with symptomatic treatment. Resume home medication. Monitor lytes and vitals. DVT and GI prophylaxis. Further recommendations of the clinical course of the pat ient DVT prophylaxis: Subcutaneous heparin GI Prophylaxis: Pepcid
[2020-03-01 01:55] VITALS: TEMP 97.9
[2020-03-01] MEDS: KETOROLAC 15 MG/ML 1 ML VIAL IVP SCH ×2 (06:03→12:08)
[2020-03-01] MEDS: FAMOTIDINE 20 MG TAB PO SCH (08:07)
[2020-03-01] MEDS: valACYclovir 500 MG TAB PO SCH (08:07)
[2020-03-01] MEDS: HEPARIN SODIUM,PORCINE 5,000 UNIT/ML 1 ML VIAL SQ SCH (08:07)
[2020-03-01 09:35] LABS: Basophils # (A) 0.1 k/uL (0-0.2); Basophils % (A) 1 %; Eosinophils # (A) 0.5 k/uL (0-0.7); Eosinophils % (A) 5 %; HCT 41.6 % (39.0-53.0); HGB 13.4 gm/dL (13.0-17.5); Lymphocytes # (A) 3.2 k/uL (1.0-4.8); Lymphocytes % (A) 28 %; MCH 28.7 pg (25.0-35.0); MCHC 32.1 g/dL (31.0-37.0); MCV 89.3 fL (80.0-100.0); Mean Platelet Volume 6.9; Monocytes # (A) 0.4 k/uL (0-1.0); Monocytes % (A) 4 %; Neutrophils # (A) 7.1 k/uL (1.3-7.7); Neutrophils % (A) 62 %; Platelet Count 454 k/uL (150-450); RBC 4.66 m/uL (4.30-5.90); WBC 11.5 k/uL (3.8-10.6)
[2020-03-01 09:44] LABS: African American GFR (CKD) >90 (>60 ml/min/1.73 sqM); Anion Gap 8 mmol/L; Blood Urea Nitrogen 11 mg/dL (9-20); Carbon Dioxide 26 mmol/L (22-30); Chloride 107 mmol/L (98-107); Glucose 91 mg/dL (74-99); Non-African American GFR(CKD) >90 (>60 ml/min/1.73 sqM); Potassium 4.5 mmol/L (3.5-5.1); Sodium 141 mmol/L (137-145)
--- NOTE | 2020-03-01 14:25 | P.PN ---
Subjective Progress Note Date: 03/01/20 Principal diagnosis: Right leg abscess Patient doing well today. Pain is mostly gone now. No fevers. Cultures are showing staph aureus non-MRSA Objective - Vital Signs Vital signs: Vital Signs Temp 97.9 F 03/01/20 07:01 Pulse 72 03/01/20 08:00 Resp 18 03/01/20 08:00 BP 143/88 03/01/20 07:01 Pulse Ox 98 03/01/20 07:01 Intake & Output 02/29/20 03/01/20 03/01/20 18:59 06:59 18:59 Intake Total 530 1000 Output Total 500 Balance 530 500 Intake: Intake, IV Titration 50 1000 Amount Sodium Chloride 0.9% 1, 1000 000 ml @ 130 mls/hr IV . Q7H42M [facility] Rx#:[id number] ceFAZolin 2 gm In Sodium 50 Chloride 0.9% 50 ml @ 100 mls/hr IVPB Q8HR [facility] Rx# :[id number] Oral 480 Output: Urine 500 Other: Voiding Method Toilet Toilet Toilet Urinal Urinal Urinal # Voids 4 1 - Exam Left byrne erythema improved, minimal tenderness, wounds clean - Labs CBC & Chem 7: 03/01/20 08:36 03/01/20 08:36 Labs: Abnormal Lab Results - Last 24 Hours (Table) 02/26/20 03/01/20 Range/Units 17:54 08:36 WBC 11.5 H (3.8-10.6) k/uL Plt Count 454 H (150-450) k/uL HSV I DNA PCR DETECTED H (Not detected) Microbiology - Last 24 Hours (Table) 02/27/20 11:20 Gram Stain - Final Leg - Left Wound Culture - Final Staphylococcus aureus 02/23/20 20:05 Blood Culture - Final Blood No Growth after 144 hours 02/23/20 20:05 Blood Culture - Final Blood No Growth after 144 hours 02/27/20 11:20 Anaerobic Culture - Preliminary Leg - Left Assessment and Plan (1) Abscess of left leg Narrative/Plan: Agree with plans for discharge. Continue antibiotics postdischarge. Continue local wound care. Follow-up with my office as needed. Current Visit: Yes Status: Acute Code(s): L02.416 - CUTANEOUS ABSCESS OF LEFT LOWER LIMB SNOMED Code(s): 360425431
[2020-03-01 14:57] VITALS: BP 150/91; PULSE 70; RESP 16
[2020-03-01 15:31] VITALS: BMI 38.2
--- NOTE | 2020-03-01 15:34 | PN ---
PROGRESS NOTE DATE OF SERVICE: 03/01/2020 REASON FOR FOLLOWUP: Left leg abscess and cellulitis. INTERVAL HISTORY: The patient is currently afebrile, has been breathing comfortably. Denies having any chest pain. No shortness of breath or cough. No nausea, no vomiting, no abdominal pain. Pain to the left leg is currently controlled. PHYSICAL EXAMINATION: Blood pressure is 143/88 with a pulse of 72, temperature 97.9. He is 98% on room air. General description is a middle-aged male, up in the bed in no distress. RESPIRATORY SYSTEM: Unlabored breathing, clear to auscultation anteriorly. HEART: S1, S2. Regular rate and rhythm. ABDOMEN: Soft. Left leg swelling has decreased. LABS: White count is 11.5. DIAGNOSTIC IMPRESSION AND PLAN: 1. Patient with left leg abscess and cellulitis, status post surgical drainage, culture with MSSA in view of recent infection. Antibiotic switched to Rocephin 2 grams daily. Continue outpatient setting four 10 days. Local care with Aquacel packing of the wound. Follow up in the office with the Wound Care next week. Continue supportive care. 2. Patient with a better impression of the face area. Continue Valtrex for about a week. MMODL / IJN: [id number] /
--- NOTE | 2020-03-02 01:08 | P.DS ---
Providers Date of admission: 02/23/20 22:21 Attending physician: Juan Guzman Consults: 02/24/20 10:37 Consult Physician Urgent Consulting Provider: Semaj Steven Consult Reason/Comments: Left leg cellulitis Do you want consulting provider notified?: Yes 02/26/20 18:31 Consult Physician Routine Consulting Provider: Fernando Delgado Consult Reason/Comments: leg abscess Do you want consulting provider notified?: Yes Primary care physician: Isi Valera Hospital Course: Diagnoses: Left leg cellulitis Right facial herpes zoster Hospital course: this is a pleasant 29 years old mal[place] significant past medical history who presents with 2 days left leg swelling, warmth and tenderness, and there is a scraping wound in the middle of the left leg. Patient reports he had a trauma about one month ago with machine but his legs were fine until 2 days ago. Doppler of the lower extremity was negative for DVT, patient was diagnosed with cellulitis of the left leg and distal thigh, he was evaluated by infectious disease team and he was treated with antibiotics cefazolin and vancomycin, culture came back positive for MSSA, and patient will be discharged home to more weeks of IV antibiotics as per infectious disease recommendation Also patient status post I and D of his left leg abscess, by surgery team Patient developed right facial herpetic rash, he was treated with Valtrex and his rash significantly improved, patient will be discharged on short course of oral antibiotic On the day of discharge patient denies chest pain, no dyspnea, no nausea vomiting, no abdominal pain, no change in urine or bowel habits. No fever Patient was cleared for discharge by infectious disease and surgery teams Problems and management plan were discussed with the patient and he verbalized understanding and acceptance Patient was found stable and can be discharged home however he needs follow-up as an outpatient. Patient was instructed to follow up with PCP Dr. Valera within one week and patient agrees with the appointments made for him with his PCP. Also patient was instructed to follow up with Dr. Steven in 1-2 weeks from infectious disease team and he agrees to call with appointment Gen: patient is a AAOx3, no distress CVS: S1-S2, RRR, no murmur Lungs: B/L CTA, no wheezing Abdomen: soft, no distention, no tenderness, positive bowel sounds Extremity: no leg edema or induration Time spent more than 35 minutes Patient Condition at Discharge: Serious Plan - Discharge Summary Discharge Rx Participant: No New Discharge Prescriptions: New valACYclovir [Valtrex] 1,000 mg PO TID #15 tab Continue Cyclobenzaprine [Flexeril] 10 mg PO BID Acetaminophen [Tylenol] 1,000 mg PO Q6H PRN PRN Reason: Fever And/ Or Pain Discontinued Ibuprofen [Motrin] 800 mg PO TID PRN PRN Reason: Pain Cephalexin [Keflex] 500 mg PO Q6HR Discharge Medication List Acetaminophen [Tylenol] 1,000 mg PO Q6H PRN 02/23/20 [History] Cyclobenzaprine [Flexeril] 10 mg PO BID 02/23/20 [History] valACYclovir [Valtrex] 1,000 mg PO TID #15 tab 02/29/20 [Rx] Follow up Appointment(s)/Referral(s): Isi Valera III, MD [Primary Care Provider] - 03/05/20 2:30 pm (With Sharon) [facility], [NON-STAFF] - As Needed [facility] [NON-STAFF] - 03/02/20 11:00 am (First appointment for IV antibiotic administration.) Semaj Steven MD [STAFF PHYSICIAN] - 1 Week (Will set up when at infusion appointment) Patient Instructions/Handouts: Cellulitis (DC) Activity/Diet/Wound Care/Special Instructions: regular diet activity is limited till you see your doctor Discharge Disposition: HOME WITH HOME HEALTH SERVICES
== END 2020-03-01 15:37 | disposition home health service (06) | DRG 603 ==
LOC: EC 19:10 → 4SSUR 22:21
PROVIDERS: ADMIT Hospitalist; ATTEND Hospitalist
PROC: 0J9P0ZX Drainage of Left Lower Leg Subcutaneous Tissue and Fascia, Open Approach, Diagnostic (ICD-10-PCS; principal; 2020-02-27)
PROC: 05HF33Z Insertion of Infusion Device into Left Cephalic Vein, Percutaneous Approach (ICD-10-PCS; 2020-03-01 08:20)
DX: L03.116 Cellulitis of left lower limb (principal); L02.416 Cutaneous abscess of left lower limb; B02.9 Zoster without complications; B95.61 Methicillin susceptible Staphylococcus aureus infection as the cause of diseases classified elsewhere; Z88.2 Allergy status to sulfonamides
CPT/HCPCS: 36410; 36415; 76937; 80048; 80053; 80202; 81003; 82550; 82565; 83605; 85025; 85027; 85379; 85610; 85730; 86140; 86695; 86696; 87040; 87070; 87075; 87077; 87186; 87205; 87529; 93005; 96365; 96367; 99285

== ENCOUNTER 2021-09-17 18:26 | Emergency (ER) | payer BC ==
[2021-09-17 19:17] VITALS: TEMP 98.3
[2021-09-17] MEDS ORDERED: ONDANSETRON 4 MG/2 ML VIAL IVP STA (21:44)
[2021-09-17] MEDS ORDERED: SODIUM CHLORIDE 0.9% 2,000 ML IV STA (21:44)
[2021-09-17] MEDS ORDERED: DICYCLOMINE 20 MG TAB PO STA (21:45)
--- NOTE | 2021-09-17 21:57 | ED ---
Nausea/Vomiting/Diarrhea HPI - General Chief complaint: Nausea/Vomiting/Diarrhea Stated complaint: Fever,Upset stomach Time Seen by Provider: 09/17/21 21:40 Source: patient Mode of arrival: ambulatory Limitations: no limitations - History of Present Illness Initial comments: She is a 31-year-old male who presents to the emergency department with a chief complaint of abdominal pain, nausea, and diarrhea. Patient states the pain started at 4 AM this morning. The pain is left-sided and worse in the left lower quadrant. He reports several episodes of diarrhea, nonbloody that have continued throughout the day. Patient reports associated nausea with no vomiting. Patient states his temperature was 101.7F today and he has been experiencing intermittent chills. Patient denies abdominal past medical history or surgery. Patient has no other concerns at this time including headache, , body aches, shortness of breath, cough, chest pain, and burning with urination. - Related Data Previous Rx's Medication Instructions Recorded Dicyclomine [Bentyl] 20 mg PO TID PRN #9 tablet 09/17/21 Ondansetron Odt [Zofran Odt] 4 mg PO Q8HR PRN #15 tab 09/17/21 Allergies Allergy/AdvReac Type Severity Reaction Status Date / Time Sulfa (Sulfonamide Allergy Unknown Verified 09/17/21 23:03 Antibiotics) Review of Systems ROS Statement: Those systems with pertinent positive or pertinent negative responses have been documented in the HPI. ROS Other: All systems not noted in ROS Statement are negative. Past Medical History Past Medical History: No Reported History History of Any Multi-Drug Resistant Organisms: MRSA Date of last positivie culture/infection: 2006 MDRO Source:: arm Additional Past Surgical History / Comment(s): oral Past Anesthesia/Blood Transfusion Reactions: No Reported Reaction Past Psychological History: No Psychological Hx Reported Smoking Status: Never smoker Past Alcohol Use History: Occasional Past Drug Use History: None Reported - Past Family History Father History Unknown: Yes General Exam Limitations: no limitations General appearance: alert, in no apparent distress Head exam: Present: atraumatic, normocephalic, normal inspection Eye exam: Present: normal appearance, PERRL, EOMI. Absent: scleral icterus, conjunctival injection, periorbital swelling ENT exam: Present: mucous membranes moist Neck exam: Present: normal inspection Respiratory exam: Present: normal lung sounds bilaterally. Absent: respiratory distress, wheezes, rales, rhonchi, stridor Cardiovascular Exam: Present: regular rate, normal rhythm, normal heart sounds. Absent: systolic murmur, diastolic murmur, rubs, gallop, clicks GI/Abdominal exam: Present: soft, distended, tenderness (Left lower quadrant), n ormal bowel sounds. Absent: guarding, rebound, rigid Back exam: Absent: CVA tenderness (R), CVA tenderness (L) Neurological exam: Present: alert, oriented X3, CN II-XII intact Psychiatric exam: Present: normal affect, normal mood Skin exam: Present: warm, dry, intact, normal color. Absent: rash Course Vital Signs 09/17/21 19:14 Temperature 98.3 F Pulse Rate 87 Respiratory 18 Rate Blood Pressure 124/81 O2 Sat by Pulse 96 Oximetry Medical Decision Making - Medical Decision Making Patient is a 31-year-old male who presents with left-sided abdominal pain, nausea, diarrhea, and fever. Thorough history and examination were performed. Patient is afebrile. The abdomen is soft and tender in the left lower quadrant. Laboratory studies are relatively unremarkable. Due to reported fever, left lower quadrant pain, and diarrhea, CT of the abdomen and pelvis was obtained for rule out diverticulitis which showed sigmoid diverticulosis with no diverticulitis. Patient given large fluid bolus, Bentyl, and Zofran. On reevaluation patient states he has no abdominal pain and is feeling much better. Results discussed with patient. Patient symptoms are likely due to viral etiology. I will prescribe patient Bentyl and Zofran to go home with. Return parameters discussed. Patient verbalizes understanding and is agreeable to plan. Dr. Lovell is my attending. - Lab Data Result diagrams: 09/17/21 22:26 09/17/21 22:26 Lab Results 09/17/21 09/17/21 09/17/21 Range/Units 22:26 22:26 22:26 WBC 11.6 H (3.8-10.6) k/uL RBC 5.52 (4.30-5.90) m/uL Hgb 16.2 (13.0-17.5) gm/dL Hct 50.2 (39.0-53.0) % MCV 90.8 (80.0-100.0) fL MCH 29.3 (25.0-35.0) pg MCHC 32.3 (31.0-37.0) g/dL RDW 13.0 (11.5-15.5) % Plt Count 367 (150-450) k/uL MPV 6.6 Neutrophils % 62 % Lymphocytes % 30 % Monocytes % 5 % Eosinophils % 2 % Basophils % 0 % Neutrophils # 7.2 (1.3-7.7) k/uL Lymphocytes # 3.4 (1.0-4.8) k/uL Monocytes # 0.6 (0-1.0) k/uL Eosinophils # 0.2 (0-0.7) k/uL Basophils # 0.0 (0-0.2) k/uL Sodium 139 (137-145) mmol/L Potassium 4.2 (3.5-5.1) mmol/L Chloride 104 (98-107) mmol/L Carbon Dioxide 25 (22-30) mmol/L Anion Gap 10 mmol/L BUN 16 (9-20) mg/dL Creatinine 1.28 H (0.66-1.25) mg/dL Est GFR (CKD-EPI)AfAm 85 (>60 ml/min/1.73 sqM) Est GFR (CKD-EPI)NonAf 74 (>60 ml/min/1.73 sqM) Glucose 105 H (74-99) mg/dL Calcium 9.3 (8.4-10.2) mg/dL Magnesium 2.1 (1.6-2.3) mg/dL Total Bilirubin 1.2 (0.2-1.3) mg/dL AST 23 (17-59) U/L ALT 32 (4-49) U/L Alkaline Phosphatase 72 (38-126) U/L Total Protein 8.1 (6.3-8.2) g/dL Albumin 4.7 (3.5-5.0) g/dL Lipase 40 (23-300) U/L Urine Color Urine Appearance (Clear) Urine pH (5.0-8.0) Ur Specific Dalton (1.001-1.035) Urine Protein (Negative) Urine Glucose (UA) (Negative) Urine Ketones (Negative) Urine Blood (Negative) Urine Nitrite (Negative) Urine Bilirubin (Negative) Urine Urobilinogen (<2.0) mg/dL Ur Leukocyte Esterase (Negative) Urine RBC (0-5) /hpf Urine WBC (0-5) /hpf Ur Squamous Epith Cells (0-4) /hpf Hyaline Casts (0-2) /lpf Urine Mucus (None) /hpf Influenza Type A (PCR) Not Detected (Not Detectd) Influenza Type B (PCR) Not Detected (Not Detectd) RSV (PCR) Not Detected (Not Detectd) SARS-CoV-2 (PCR) Not Detected (Not Detectd) 09/17/21 Range/Units 22:47 WBC (3.8-10.6) k/uL RBC (4.30-5.90) m/uL Hgb (13.0-17.5) gm/dL Hct (39.0-53.0) % MCV (80.0-100.0) fL MCH (25.0-35.0) pg MCHC (31.0-37.0) g/dL RDW (11.5-15.5) % Plt Count (150-450) k/uL MPV Neutrophils % % Lymphocytes % % Monocytes % % Eosinophils % % Basophils % % Neutrophils # (1.3-7.7) k/uL Lymphocytes # (1.0-4.8) k/uL Monocytes # (0-1.0) k/uL Eosinophils # (0-0.7) k/uL Basophils # (0-0.2) k/uL Sodium (137-145) mmol/L Potassium (3.5-5.1) mmol/L Chloride (98-107) mmol/L Carbon Dioxide (22-30) mmol/L Anion Gap mmol/L BUN (9-20) mg/dL Creatinine (0.66-1.25) mg/dL Est GFR (CKD-EPI)AfAm (>60 ml/min/1.73 sqM) Est GFR (CKD-EPI)NonAf (>60 ml/min/1.73 sqM) Glucose (74-99) mg/dL Calcium (8.4-10.2) mg/dL Magnesium (1.6-2.3) mg/dL Total Bilirubin (0.2-1.3) mg/dL AST (17-59) U/L ALT (4-49) U/L Alkaline Phosphatase (38-126) U/L Total Protein (6.3-8.2) g/dL Albumin (3.5-5.0) g/dL Lipase (23-300) U/L Urine Color Yellow Urine Appearance Clear (Clear) Urine pH 5.5 (5.0-8.0) Ur Specific Dalton 1.034 (1.001-1.035) Urine Protein 1+ H (Negative) Urine Glucose (UA) Negative (Negative) Urine Ketones Negative (Negative) Urine Blood Negative (Negative) Urine Nitrite Negative (Negative) Urine Bilirubin Negative (Negative) Urine Urobilinogen <2.0 (<2.0) mg/dL Ur Leukocyte Esterase Negative (Negative) Urine RBC <1 (0-5) /hpf Urine WBC 2 (0-5) /hpf Ur Squamous Epith Cells 1 (0-4) /hpf Hyaline Casts 23 H (0-2) /lpf Urine Mucus Few H (None) /hpf Influenza Type A (PCR) (Not Detectd) Influenza Type B (PCR) (Not Detectd) RSV (PCR) (Not Detectd) SARS-CoV-2 (PCR) (Not Detectd) Disposition Clinical Impression: Abdominal pain, Diarrhea, Fever, Nausea Disposition: HOME SELF-CARE Condition: Good Instructions (If sedation given, give patient instructions): Acute Nausea and Vomiting (ED), Abdominal Pain (ED) Additional Instructions: Please take medications as directed. Increase fluid intake as tolerated. Follow-up with primary care in 1-2 days. Return to the emergency department if you experience new, concerning, or worsening symptoms. Prescriptions: Dicyclomine [Bentyl] 20 mg PO TID PRN #9 tablet PRN Reason: Pain Ondansetron Odt [Zofran Odt] 4 mg PO Q8HR PRN #15 tab PRN Reason: Nausea Is patient prescribed a controlled substance at d/c from ED?: No Referrals: Isi Valera III, MD [Primary Care Provider] - 1-2 days Time of Disposition: 23:24
[2021-09-17 22:34] LABS: Basophils % (A) 0 %; Eosinophils # (A) 0.2 k/uL (0-0.7); Eosinophils % (A) 2 %; HCT 50.2 % (39.0-53.0); HGB 16.2 gm/dL (13.0-17.5); Lymphocytes # (A) 3.4 k/uL (1.0-4.8); Lymphocytes % (A) 30 %; MCH 29.3 pg (25.0-35.0); MCHC 32.3 g/dL (31.0-37.0); MCV 90.8 fL (80.0-100.0); Mean Platelet Volume 6.6; Monocytes # (A) 0.6 k/uL (0-1.0); Monocytes % (A) 5 %; Neutrophils # (A) 7.2 k/uL (1.3-7.7); Neutrophils % (A) 62 %; Platelet Count 367 k/uL (150-450); RBC 5.52 m/uL (4.30-5.90); WBC 11.6 k/uL (3.8-10.6)
[2021-09-17 22:37] LABS: Albumin 4.7 g/dL (3.5-5.0); Calcium 9.3 mg/dL (8.4-10.2); Magnesium 2.1 mg/dL (1.6-2.3); Potassium 4.2 mmol/L (3.5-5.1); Total Bilirubin 1.2 mg/dL (0.2-1.3); Total Protein 8.1 g/dL (6.3-8.2)
--- NOTE | 2021-09-17 22:58 | CT ---
EXAMINATION TYPE: CT abdomen pelvis w con DATE OF EXAM: 09/17/2021 COMPARISON: None HISTORY: Abdominal pain CT DLP: 1716.4 mGycm Automated exposure control for dose reduction was used. CONTRAST: Performed with IV Contrast, patient injected with 100 mL of Isovue 300. Images obtained from the diaphragm to the floor the pelvis with IV contrast. Lung bases are clear. There is no pleural effusion. Heart size is normal. There is no pericardial eff usion. Liver spleen pancreas stomach and gallbladder appear normal. The bile ducts are not dilated. There is no adrenal mass. Kidneys show satisfactory contrast opacification. There is no hydronephrosi s. Ureters are not dilated. Delayed images show normal renal excretion. There is no retroperitoneal a denopathy. Bladder distends smoothly. There is no inguinal hernia. There is no free fluid in the pelv is. There is no evidence of a pelvic mass. There are a few sigmoid diverticula. No diverticulitis. Appendix is posterior and appears normal. There is no mesenteric edema. No ascites or free air. No keara wel obstruction. Lumbar vertebrae have normal alignment. Posterior element are intact. No compression fracture. Bony p minerva is intact. Hip joints are intact. IMPRESSION: Normal appendix. There are a few sigmoid diverticula. No diverticulitis. No acute abnormality of the abdomen and pelvis
[2021-09-17 23:02] LABS: Appearance,Urine Clear (Clear); Bilirubin,Urine Negative (Negative); Blood,Urine Negative (Negative); Color,Urine Yellow; Glucose,Urine (UA) Negative (Negative); Hyaline Casts,Urine 23 /lpf (0-2); Ketones,Urine Negative (Negative); Leukocyte Esterase,Urine Negative (Negative); Mucus,Urine Few /hpf; Nitrite,Urine Negative (Negative); PH, Urine 5.5 (5.0-8.0); Protein,Urine 1+ (Negative); RBC,Urine <1 /hpf (0-5); Specific Gravity,Urine 1.034 (1.001-1.035); Squamous Epithelial Cell,Urine 1 /hpf (0-4); Urobilinogen,Urine <2.0 mg/dL (<2.0); WBC,Urine 2 /hpf (0-5)
[2021-09-17 23:05] LABS: Influenza A Not Detected (Not Detectd); Influenza B Not Detected (Not Detectd)
[2021-09-18 00:01] VITALS: BP 134/89; PULSE 79; RESP 20
== END 2021-09-18 00:21 | disposition home or self-care (01) ==
LOC: EC 18:26
DX: R19.7 Diarrhea, unspecified (principal); R11.2 Nausea with vomiting, unspecified; R50.9 Fever, unspecified; Z88.2 Allergy status to sulfonamides; Z20.822 Contact with and (suspected) exposure to COVID-19
CPT/HCPCS: 36415; 80053; 83690; 83735; 85025; 81001; 87636; 74177; 99284; 96374; 96361; J2405; Q9967

== ENCOUNTER 2022-03-18 14:56 | Emergency (ER) | payer BC ==
[2022-03-18 15:54] VITALS: TEMP 96.9
--- NOTE | 2022-03-18 17:18 | XR ---
EXAMINATION TYPE: XR abdomen 2V DATE OF EXAM: 03/18/2022 COMPARISON: NONE HISTORY: Abdominal pain TECHNIQUE: 3 views Supine and upright FINDINGS: There is no evidence of intestinal obstruction or pneumoperitoneum. Fecal pattern is normal . No evidence of a mass. There are no pathologic calcifications over the kidneys. Bony structures are intact. Lung bases are clear. IMPRESSION: Nonacute abdomen.
[2022-03-18 17:48] LABS: Basophils # (A) 0.1 k/uL (0-0.2); Basophils % (A) 1 %; Eosinophils # (A) 0.3 k/uL (0-0.7); Eosinophils % (A) 2 %; HGB 15.3 gm/dL (13.0-17.5); Lymphocytes # (A) 4.2 k/uL (1.0-4.8); Lymphocytes % (A) 40 %; MCV 85.2 fL (80.0-100.0); Mean Platelet Volume 7.1; Monocytes # (A) 0.5 k/uL (0-1.0); Monocytes % (A) 4 %; Neutrophils # (A) 5.4 k/uL (1.3-7.7); Neutrophils % (A) 51 %; Platelet Count 361 k/uL (150-450); RBC 5.28 m/uL (4.30-5.90); WBC 10.6 k/uL (3.8-10.6)
[2022-03-18 18:03] LABS: ALT 35 U/L (4-49); AST 27 U/L (17-59); African American GFR (CKD) >90 (>60 ml/min/1.73 sqM); Albumin 4.8 g/dL (3.5-5.0); Alkaline Phosphatase 74 U/L (38-126); Anion Gap 16 mmol/L; Blood Urea Nitrogen 14 mg/dL (9-20); Calcium 9.3 mg/dL (8.4-10.2); Carbon Dioxide 20 mmol/L (22-30); Chloride 106 mmol/L (98-107); Glucose 104 mg/dL (74-99); Non-African American GFR(CKD) >90 (>60 ml/min/1.73 sqM); Potassium 4.1 mmol/L (3.5-5.1); Sodium 142 mmol/L (137-145); Total Bilirubin 0.5 mg/dL (0.2-1.3); Total Protein 7.8 g/dL (6.3-8.2)
--- NOTE | 2022-03-18 19:44 | ED ---
GI Bleed HPI - General Chief complaint: GI Bleed Stated complaint: Rectal Bleeding Time Seen by Provider: 03/18/22 19:21 Source: patient, RN notes reviewed Mode of arrival: ambulatory Limitations: no limitations - History of Present Illness Initial comments: This is a pleasant 31-year-old male presents emergency department complaining of blood per rectum. Patient states it happened this afternoon. It was mixed with stool. It did turn the toilet water pain. Patient denying any abdominal pain. Patient was able to eat supper and pieces of pizza before arriving today. No palpitations. No lightheadedness. Patient takes no medications. No headache, no fever or chills, no changes in vision or hearing, no sore throat or difficulty with speech, no neck pain, no chest pain or shortness of breath, no abdominal pain, no nausea or vomiting, no changes in urination, no numbness or tingling, no extremity pain, no skin rashes or lesions. Past medical, surgical, social, and family history reviewed. MD complaint: blood on toilet paper, blood streaked stool - Related Data Previous Rx's Medication Instructions Recorded Dicyclomine [Bentyl] 20 mg PO TID PRN #9 tablet 09/17/21 Ondansetron Odt [Zofran Odt] 4 mg PO Q8HR PRN #15 tab 09/17/21 Pramoxine HCl [Proctofoam] 1 applic TOPICAL QID #15 ml 03/18/22 Allergies Allergy/AdvReac Type Severity Reaction Status Date / Time Sulfa (Sulfonamide Allergy Unknown Verified 03/18/22 15:54 Antibiotics) Review of Systems ROS Statement: Those systems with pertinent positive or pertinent negative responses have been documented in the HPI. ROS Other: All systems not noted in ROS Statement are negative. Past Medical History Past Medical History: Hypertension History of Any Multi-Drug Resistant Organisms: MRSA Date of last positivie culture/infection: 2006 MDRO Source:: arm Additional Past Surgical History / Comment(s): oral, ABCESS TO LEG Past Anesthesia/Blood Transfusion Reactions: No Reported Reaction Past Psychological History: No Psychological Hx Reported Smoking Status: Never smoker Past Alcohol Use History: Occasional Past Drug Use History: None Reported - Past Family History Father History Unknown: Yes General Exam - General Exam Comments Initial Comments: Patient no distress, does not appear to be ill or toxic. Limitations: no limitations General appearance: alert, in no apparent distress Head exam: Present: atraumatic, normocephalic, normal inspection Eye exam: Present: normal appearance, PERRL, EOMI. Absent: scleral icterus, conjunctival injection, periorbital swelling ENT exam: Present: normal exam, normal oropharynx, mucous membranes moist, normal external ear exam Neck exam: Present: normal inspection, full ROM. Absent: tenderness, meningismus, lymphadenopathy Respiratory exam: Present: normal lung sounds bilaterally. Absent: respiratory distress, wheezes, rales, rhonchi, stridor, chest wall tenderness, accessory mu scle use Cardiovascular Exam: Present: regular rate, normal rhythm, normal heart sounds. Absent: systolic murmur, diastolic murmur, rubs, gallop, clicks GI/Abdominal exam: Present: soft, normal bowel sounds. Absent: distended, tenderness, guarding, rebound, rigid Rectal exam: Present: normal inspection, normal rectal tone, hemorrhoids, other (Small, noninflamed external hemorrhoid. Possible internal hemorrhoid. No mas s. No gross blood. Light brown stool. Hemoccult card sent.). Absent: mass, tenderness Extremities exam: Present: normal inspection, full ROM, normal capillary refill. Absent: tenderness, pedal edema, joint swelling, calf tenderness Back exam: Present: normal inspection Neurological exam: Present: alert, oriented X3, CN II-XII intact, normal gait Psychiatric exam: Present: normal affect, normal mood Skin exam: Present: warm, dry, intact, normal color. Absent: rash Course Vital Signs 03/18/22 15:50 Temperature 96.9 F L Pulse Rate 89 Respiratory 20 Rate Blood Pressure 149/82 O2 Sat by Pulse 97 Oximetry Medical Decision Making - Medical Decision Making hemodynamically stable 31-year-old male in no distress. No abdominal tenderness. Probable internal hemorrhoid felt. Patient has no active bleeding. There is no gross blood. Small, noninflamed external hemorrhoid. will send the patient for surgical evaluation. Discussed conservative measures for hemorrhoids. There is possibility this is a anal fissure. However the patient is not having a lot of discomfort. Patient states she has not been constipated. There was no trauma. Patient was told to return to the ER for any signs or symptoms worsen. Told to return immediately if any other problems arise. All questions answered. Treatment plan discussed. Patient in agreement Every effort has been made to ensure accuracy of this dictation. However, due to the limitations of electronic medical records and dictation devices, errors in charting still occur. Fiber supplement recommended. Proctofoam prescribed. The case was discussed in detail with ED attending physician. Presentation, findings, treatment plan discussed in detail. Traveling Auditor Dr. Chiang - Lab Data Result diagrams: 03/18/22 17:32 03/18/22 17:32 Lab Results 03/18/22 03/18/22 03/18/22 Range/Units 17:32 17:32 17:32 WBC 10.6 (3.8-10.6) k/uL RBC 5.28 (4.30-5.90) m/uL Hgb 15.3 (13.0-17.5) gm/dL Hct 45.0 (39.0-53.0) % MCV 85.2 (80.0-100.0) fL MCH 29.0 (25.0-35.0) pg MCHC 34.0 (31.0-37.0) g/dL RDW 13.0 (11.5-15.5) % Plt Count 361 (150-450) k/uL MPV 7.1 Neutrophils % 51 % Lymphocytes % 40 % Monocytes % 4 % Eosinophils % 2 % Basophils % 1 % Neutrophils # 5.4 (1.3-7.7) k/uL Lymphocytes # 4.2 (1.0-4.8) k/uL Monocytes # 0.5 (0-1.0) k/uL Eosinophils # 0.3 (0-0.7) k/uL Basophils # 0.1 (0-0.2) k/uL APTT 25.2 (22.0-30.0) sec Sodium 142 (137-145) mmol/L Potassium 4.1 (3.5-5.1) mmol/L Chloride 106 (98-107) mmol/L Carbon Dioxide 20 L (22-30) mmol/L Anion Gap 16 mmol/L BUN 14 (9-20) mg/dL Creatinine 1.08 (0.66-1.25) mg/dL Est GFR (CKD-EPI)AfAm >90 (>60 ml/min/1.73 sqM) Est GFR (CKD-EPI)NonAf >90 (>60 ml/min/1.73 sqM) Glucose 104 H (74-99) mg/dL Calcium 9.3 (8.4-10.2) mg/dL Total Bilirubin 0.5 (0.2-1.3) mg/dL AST 27 (17-59) U/L ALT 35 (4-49) U/L Alkaline Phosphatase 74 (38-126) U/L Total Protein 7.8 (6.3-8.2) g/dL Albumin 4.8 (3.5-5.0) g/dL Disposition Clinical Impression: Rectal bleeding, External hemorrhoids without complication, Internal hemorrhoid, bleeding, Elevated blood pressure reading Disposition: HOME SELF-CARE Condition: Stable Instructions (If sedation given, give patient instructions): Hemorrhoids (ED), Rectal Bleeding (ED), Hypertension (ED) Additional Instructions: Pickup a fiber supplement and take it daily. Call and make an appointment with the general surgeon as discussed. Stay hydrated, no lifting over 20 pounds for the next 5-7 days. Do not strain to have a bowel movement. Follow-up with your regular physician as directed. Return to the ER immediately if any symptoms worsen, new symptoms arise, or any other problems develop. Prescriptions: Pramoxine HCl [Proctofoam] 1 applic TOPICAL QID #15 ml Is patient prescribed a controlled substance at d/c from ED?: No Referrals: Isi Valera III, MD [Primary Care Provider] - 1-2 days Migue Cordoba MD [STAFF PHYSICIAN] - 03/21/22 Time of Disposition: 19:42
[2022-03-18 19:55] VITALS: BP 180/91; PULSE 81; RESP 18
== END 2022-03-18 19:55 | disposition home or self-care (01) ==
LOC: EC 14:56
DX: K62.5 Hemorrhage of anus and rectum (principal); K64.4 Residual hemorrhoidal skin tags; K64.8 Other hemorrhoids; Z88.2 Allergy status to sulfonamides; I10 Essential (primary) hypertension
CPT/HCPCS: 36415; 74019; 80053; 82272; 85025; 85730; 99283

== ENCOUNTER 2022-04-07 10:16 | Day surgery (SDC) | payer BC ==
[2022-04-03 15:51] VITALS: BMI 37.5
[~2022-04-07 10:16] MED LIST: LACTATED RINGERS 1,000 ML IV SCH; LIDOCAINE 1% (10MG/ML) FOR IV START INTRADERMA PRN
[2022-04-07 10:42] VITALS: TEMP 98
[2022-04-07] MEDS ORDERED: fentaNYL (PF) 50 MCG/ML 2 ML AMP ONE (11:04)
[2022-04-07] MEDS ORDERED: MIDAZOLAM 2 MG/2 ML VIAL ONE (11:04)
[2022-04-07] MEDS ORDERED: PROPOFOL 10 MG/ML 20 ML VIAL IV ONE (11:04)
--- NOTE | 2022-04-07 11:21 | P.GSHP ---
History of Present Illness H&P Date: 04/07/22 Chief Complaint: GI bleed Is a 31-year-old male who states he had rectal bleeding approximately 2-1/2 weeks ago. Patient states he saw blood on toilet paper went white himself. Patient presents today for colonoscopy. Past Medical History Past Medical History: Hypertension Additional Past Medical History / Comment(s): HEMORRHOIDS. NO RX FOR HTN History of Any Multi-Drug Resistant Organisms: MRSA Date of last positivie culture/infection: 2006 MDRO Source:: LT ARM AND BACK Additional Past Surgical History / Comment(s): oral SX, BB REMOVED FROM FINGER, ABCESS TO LEG Past Anesthesia/Blood Transfusion Reactions: No Reported Reaction Smoking Status: Never smoker - Past Family History Father History Unknown: Yes Family Medical History: No Reported History Mother Family Medical History: Cancer Brother(s) Family Medical History: Cancer Medications and Allergies Home Medications Medication Instructions Recorded Confirmed Type No Known Home Medications 04/03/22 04/07/22 History Allergies Allergy/AdvReac Type Severity Reaction Status Date / Time Sulfa (Sulfonamide Allergy Unknown Verified 04/07/22 10:42 Antibiotics) Surgical - Exam Vital Signs Temp Pulse Resp BP Pulse Ox 98.0 F 88 16 143/87 96 04/07/22 10:41 04/07/22 10:41 04/07/22 10:41 04/07/22 10:41 04/07/22 10:41 - General well developed, well nourished, no distress - Eyes PERRL - ENT normal pinna - Neck no masses - Respiratory normal expansion - Cardiovascular Rhythm: regular - Abdomen Abdomen: soft, non tender Assessment and Plan Assessment: GI bleed. We'll perform colonoscopy.
--- NOTE | 2022-04-07 11:25 | P.OP ---
Date of Procedure: 04/07/22 Preoperative Diagnosis: GI bleed Postoperative Diagnosis: Hemorrhoids Procedure(s) Performed: Colonoscopy Anesthesia: MAC Surgeon: Migue Cordoba Pathology: none sent Condition: stable Disposition: PACU Description of Procedure: The patient's placed on the endoscopy table in the lateral position. He rec eived IV sedation. Digital rectal exam was performed. This revealed some small internal and external hemorrhoids. The flexible colonoscope was then placed patient anus and passed throughout the entire colon. The ileocecal valve was visualized. The cecum, ascending and transverse colon appeared normal. The descending and sigmoid colon appeared normal. Scope was then brought back into the rectum and this was normal. Scope was withdrawn for patient. Presumed patient had bleeding from hemorrhoids.
[2022-04-07 11:51] VITALS: BP 113/65; PULSE 83; RESP 18
== END 2022-04-07 12:09 | disposition home or self-care (01) ==
LOC: ORWHC2ENDO 10:16
PROVIDERS: ATTEND Surgery
DX: K92.2 Gastrointestinal hemorrhage, unspecified (principal); I10 Essential (primary) hypertension; Z86.14 Personal history of Methicillin resistant Staphylococcus aureus infection; Z88.2 Allergy status to sulfonamides; Z87.19 Personal history of other diseases of the digestive system
CPT/HCPCS: 45378; J2250; J3010; J2704

== ENCOUNTER 2023-12-21 15:28 | Emergency (ER) | payer BC ==
[2023-12-21 17:11] LABS: ALT 47 U/L (4-49); AST 34 U/L (17-59); African American GFR (CKD) >90 (>60 ml/min/1.73 sqM); Albumin 4.5 g/dL (3.5-5.0); Alkaline Phosphatase 56 U/L (38-126); Anion Gap 10 mmol/L; Blood Urea Nitrogen 22 mg/dL (9-20); Calcium 9.3 mg/dL (8.4-10.2); Carbon Dioxide 21 mmol/L (22-30); Chloride 109 mmol/L (98-107); Glucose 88 mg/dL (74-99); INR 0.9 (<1.2); Magnesium 2.2 mg/dL (1.6-2.3); Non-African American GFR(CKD) 86 (>60 ml/min/1.73 sqM); Partial Thromboplastin Time 25.6 sec (22.0-30.0); Potassium 4.3 mmol/L (3.5-5.1); Prothrombin Time 10.1 sec (10.0-12.5); Sodium 140 mmol/L (137-145); Total Bilirubin 0.6 mg/dL (0.2-1.3); Total Protein 7.5 g/dL (6.3-8.2)
[2023-12-21] MEDS: KETOROLAC 15 MG/ML 1 ML VIAL IVP STA (17:14)
[2023-12-21 17:20] LABS: Basophils # (A) 0.1 k/uL (0-0.2); Basophils % (A) 1 %; Eosinophils # (A) 0.3 k/uL (0-0.7); Eosinophils % (A) 2 %; HCT 47.3 % (39.0-53.0); HGB 15.4 gm/dL (13.0-17.5); Lymphocytes # (A) 3.3 k/uL (1.0-4.8); Lymphocytes % (A) 26 %; MCH 29.5 pg (25.0-35.0); MCHC 32.6 g/dL (31.0-37.0); MCV 90.3 fL (80.0-100.0); Mean Platelet Volume 6.6; Monocytes # (A) 0.7 k/uL (0-1.0); Monocytes % (A) 6 %; Neutrophils # (A) 8.1 k/uL (1.3-7.7); Neutrophils % (A) 64 %; Platelet Count 376 k/uL (150-450); RBC 5.24 m/uL (4.30-5.90); RDW 12.9 % (11.5-15.5); WBC 12.8 k/uL (3.8-10.6)
--- NOTE | 2023-12-21 17:45 | XR ---
EXAMINATION TYPE: XR chest 2V DATE OF EXAM: 12/21/2023 COMPARISON: NONE HISTORY: Chest pain TECHNIQUE: Frontal and lateral views of the chest are obtained. FINDINGS: There is no focal air space opacity, pleural effusion, or pneumothorax seen. The cardiac silhouette size is within normal limits. The osseous structures are intact. IMPRESSION: No acute cardiopulmonary process.
--- NOTE | 2023-12-21 18:12 | ED ---
General Adult HPI - General Chief complaint: Chest Pain Stated complaint: Chest Pain,Sob Time Seen by Provider: 12/21/23 16:00 Source: patient, RN notes reviewed, old records reviewed Mode of arrival: ambulatory Limitations: no limitations - History of Present Illness Initial comments: This is a 33-year-old male who states he was in a store sitting in a chair when all of a sudden he had pain in the right lateral aspect of his chest that hurt to take a deep breath or move. Patient states the pain was severe and sudden onset. Patient thought it was musculoskeletal he laid on the Patient also stated movement could make it worse as did deep breathing. Patient stated he lied on the floor to stretch but it did not help and it continued so he decided to come to the emergency department. He states he is not really short of breath just hurts to take a deep breath. Patient has any fever chills or cough patient has a headache patient has numbness weakness. Patient denies any anterior chest pain. Patient denies any pain radiating to the jaw or down the arm. Patient has any abdominal pain. - Related Data Home Medications Medication Instructions Recorded Confirmed valACYclovir HCL [Valtrex] 500 mg PO DAILY 12/21/23 12/21/23 Previous Rx's Medication Instructions Recorded Cyclobenzaprine [Flexeril] 10 mg PO TID #20 tab 12/21/23 Ibuprofen [Motrin] 600 mg PO Q6HR PRN #20 tab 12/21/23 Allergies Allergy/AdvReac Type Severity Reaction Status Date / Time Sulfa (Sulfonamide AdvReac "fever of Verified 12/21/23 17:44 Antibiotics) 107" Review of Systems ROS Statement: Those systems with pertinent positive or pertinent negative responses have been documented in the HPI. ROS Other: All systems not noted in ROS Statement are negative. Past Medical History Past Medical History: Hypertension Additional Past Medical History / Comment(s): HEMORRHOIDS. NO RX FOR HTN History of Any Multi-Drug Resistant Organisms: MRSA Date of last positivie culture/infection: 2006 MDRO Source:: LT ARM AND BACK Additional Past Surgical History / Comment(s): oral SX, BB REMOVED FROM FINGER, ABCESS TO LEG Past Anesthesia/Blood Transfusion Reactions: No Reported Reaction Past Psychological History: No Psychological Hx Reported Smoking Status: Never smoker Past Alcohol Use History: Unable to Obtain Past Drug Use History: Unable to Obtain - Past Family History Father History Unknown: Yes Family Medical History: No Reported History Mother Family Medical History: Cancer Brother(s) Family Medical History: Cancer General Exam - General Exam Comments Initial Comments: GENERAL: Patient is well-developed and well-nourished. Patient is nontoxic and well- hydrated and is in mild distress. ENT: Neck is soft and supple. No significant lymphadenopathy is noted. Oropharynx is clear. Moist mucous membranes. Neck has full range of motion without eliciting any pain. EYES: The sclera were anicteric and conjunctiva were pink and moist. Extraocular movements were intact and pupils were equal round and reactive to light. Eyelids were unremarkable. PULMONARY: Unlabored respirations. Good breath sounds bilaterally. No audible rales rhonchi or wheezing was noted. CARDIOVASCULAR: There is a regular rate and rhythm without any murmurs gallops or rubs. ABDOMEN: Soft and nontender with normal bowel sounds. SKIN: Skin is clear with no lesions or rashes and otherwise unremarkable. NEUROLOGIC: Patient is alert and oriented x3. Cranial nerves II through XII are grossly intact. Motor and sensory are also intact. Normal speech, volume and content. Symmetrical smile. MUSCULOSKELETAL: Normal extremities with adequate strength and full range of motion. Palpation of the lateral aspect of the chest wall is tender and reproducible LYMPHATICS: No significant lymphadenopathy is noted PSYCHIATRIC: Normal psychiatric evaluation. Limitations: no limitations Course Vital Signs 12/21/23 12/21/23 12/21/23 15:45 16:09 16:50 Temperature 98.2 F 98.2 F Pulse Rate 88 95 Pulse Rate [ 94 Bilateral Supine Master Merchandiser] Respiratory 18 16 Rate Blood Pressure 130/85 143/93 O2 Sat by Pulse 95 96 Oximetry 12/21/23 17:19 Temperature Pulse Rate 92 Pulse Rate [ Bilateral Supine Master Merchandiser] Respiratory 14 Rate Blood Pressure 138/93 O2 Sat by Pulse 95 Oximetry Medical Decision Making - Medical Decision Making EKG as interpreted by myself EKG shows a sinus rhythm at 83 bpm. 187 QRS 110 QT interval 354 QTc is 394. Patient's EKG shows no ST segment ovation or depression Was pt. sent in by a medical professional or institution (, PA, CUFF MATCHER, urgent care, hospital, or jail...) When possible be specific @ -No Did you speak to anyone other than the patient for history (EMS, parent, family, police, friend...)? What history was obtained from this source @ -No Did you review nursing and triage notes (agree or disagree)? Why? @ -I reviewed and agree with nursing and triage notes Were old charts reviewed (outside hosp., previous admission, EMS record, old EKG, old radiological studies, urgent care reports/EKG's, jail records)? Report findings @ -No old charts were reviewed Differential Diagnosis (chest pain, altered mental status, abdominal pain women, abdominal pain men, vaginal bleeding, weakness, fever, dyspnea, syncope, headach e, dizziness, GI bleed, back pain, seizure, CVA, palpatations, mental health, musculoskeletal)? @ -Differential Chest Pain: Stable Angina, Unstable Angina, STEMI, NSTEMI Aortic Dissection, Pneumothorax, Musculoskeletal, Esophageal Spasm GERD, Cholecystitis, Pancreatitis, Zoster, this is not meant to be an all-inclusive list. EKG interpreted by me (3pts min.). @ -As above X-rays interpreted by me (1pt min.). @ -Wrist x-ray shows no acute abnormality CT interpreted by me (1pt min.). @ -None done U/S interpreted by me (1pt. min.). @ -None done What testing was considered but not performed or refused? (CT, X-rays, U/S, labs)? Why? @ -None What meds were considered but not given or refused? Why? @ -None Did you discuss the management of the patient with other professionals (professionals i.e. , PA, CUFF MATCHER, lab, RT, psych nurse, social worker clinical, churn driller, teacher, sba business development officer, correctional case records supervisor)? Give summary @ -No Was smoking cessation discussed for >3mins.? @ -No Was critical care preformed (if so, how long)? @ -No Were there social determinants of health that impacted care today? How? (Home lessness, low income, unemployed, alcoholism, drug addiction, transportation, low edu. Level, literacy, decrease access to med. care, senior living, rehab)? @ -No Was there de-escalation of care discussed even if they declined (Discuss DNR or withdrawal of care, Hospice)? DNR status @ -No What co-morbidities impacted this encounter? (DM, HTN, Smoking, COPD, CAD, Cancer, CVA, ARF, Chemo, Hep., AIDS, mental health diagnosis, sleep apnea, morbid obesity)? @ -None Was patient admitted / discharged? Hospital course, mention meds given and route, prescriptions, significant lab abnormalities, going to OR and other pertinent info. @ -Patient was given Toradol in the emergency department and it decreased his pain significantly. Patient stated he can still feel it if he moved a certain way or took a very deep breath. Patient's troponin was normal and D-dimer was normal chest x-ray was normal so patient will be discharged home with Motrin and Flexeril. Undiagnosed new problem with uncertain prognosis? @ -No Drug Therapy requiring intensive monitoring for toxicity (Heparin, Nitro, Insulin, Cardizem)? @ -No Were any procedures done? @ -No Diagnosis/symptom? @ -Musculoskeletal pain Acute, or Chronic, or Acute on Chronic? @ -Default Uncomplicated (without systemic symptoms) or Complicated (systemic symptoms)? @ -Acute complicated Side effects of treatment? @ -No Exacerbation, Progression, or Severe Exacerbation? @ -No Poses a threat to life or bodily function? How? (Chest pain, [place], [place], pneumonia, PE, COPD, DKA, ARF, appy, cholecystitis, CVA, Diverticulitis, Homicidal, Suicidal, threat to staff... and all critical care pts) @ -No - Lab Data Result diagrams: 12/21/23 16:48 12/21/23 16:48 Lab Results 12/21/23 12/21/23 12/21/23 Range/Units 16:48 16:48 16:48 WBC 12.8 H (3.8-10.6) k/uL RBC 5.24 (4.30-5.90) m/uL Hgb 15.4 (13.0-17.5) gm/dL Hct 47.3 (39.0-53.0) % MCV 90.3 (80.0-100.0) fL MCH 29.5 (25.0-35.0) pg MCHC 32.6 (31.0-37.0) g/dL RDW 12.9 (11.5-15.5) % Plt Count 376 (150-450) k/uL MPV 6.6 Neutrophils % 64 % Lymphocytes % 26 % Monocytes % 6 % Eosinophils % 2 % Basophils % 1 % Neutrophils # 8.1 H (1.3-7.7) k/uL Lymphocytes # 3.3 (1.0-4.8) k/uL Monocytes # 0.7 (0-1.0) k/uL Eosinophils # 0.3 (0-0.7) k/uL Basophils # 0.1 (0-0.2) k/uL PT 10.1 (10.0-12.5) sec INR 0.9 (<1.2) APTT 25.6 (22.0-30.0) sec D-Dimer 0.22 (<0.60) mg/L FEU Sodium 140 (137-145) mmol/L Potassium 4.3 (3.5-5.1) mmol/L Chloride 109 H (98-107) mmol/L Carbon Dioxide 21 L (22-30) mmol/L Anion Gap 10 mmol/L BUN 22 H (9-20) mg/dL Creatinine 1.11 (0.66-1.25) mg/dL Est GFR (CKD-EPI)AfAm >90 (>60 ml/min/1.73 sqM) Est GFR (CKD-EPI)NonAf 86 (>60 ml/min/1.73 sqM) Glucose 88 (74-99) mg/dL Calcium 9.3 (8.4-10.2) mg/dL Magnesium 2.2 (1.6-2.3) mg/dL Total Bilirubin 0.6 (0.2-1.3) mg/dL AST 34 (17-59) U/L ALT 47 (4-49) U/L Alkaline Phosphatase 56 (38-126) U/L Troponin I (0.000-0.034) ng/mL Total Protein 7.5 (6.3-8.2) g/dL Albumin 4.5 (3.5-5.0) g/dL 12/21/23 Range/Units 16:48 WBC (3.8-10.6) k/uL RBC (4.30-5.90) m/uL Hgb (13.0-17.5) gm/dL Hct (39.0-53.0) % MCV (80.0-100.0) fL MCH (25.0-35.0) pg MCHC (31.0-37.0) g/dL RDW (11.5-15.5) % Plt Count (150-450) k/uL MPV Neutrophils % % Lymphocytes % % Monocytes % % Eosinophils % % Basophils % % Neutrophils # (1.3-7.7) k/uL Lymphocytes # (1.0-4.8) k/uL Monocytes # (0-1.0) k/uL Eosinophils # (0-0.7) k/uL Basophils # (0-0.2) k/uL PT (10.0-12.5) sec INR (<1.2) APTT (22.0-30.0) sec D-Dimer (<0.60) mg/L FEU Sodium (137-145) mmol/L Potassium (3.5-5.1) mmol/L Chloride (98-107) mmol/L Carbon Dioxide (22-30) mmol/L Anion Gap mmol/L BUN (9-20) mg/dL Creatinine (0.66-1.25) mg/dL Est GFR (CKD-EPI)AfAm (>60 ml/min/1.73 sqM) Est GFR (CKD-EPI)NonAf (>60 ml/min/1.73 sqM) Glucose (74-99) mg/dL Calcium (8.4-10.2) mg/dL Magnesium (1.6-2.3) mg/dL Total Bilirubin (0.2-1.3) mg/dL AST (17-59) U/L ALT (4-49) U/L Alkaline Phosphatase (38-126) U/L Troponin I <0.012 (0.000-0.034) ng/mL Total Protein (6.3-8.2) g/dL Albumin (3.5-5.0) g/dL Disposition Clinical Impression: Musculoskeletal pain Disposition: HOME SELF-CARE Instructions (If sedation given, give patient instructions): Musculoskeletal P ain (ED) Prescriptions: Cyclobenzaprine [Flexeril] 10 mg PO TID #20 tab Ibuprofen [Motrin] 600 mg PO Q6HR PRN #20 tab PRN Reason: For pain Is patient prescribed a controlled substance at d/c from ED?: No Referrals: Geraldine Pena DO [Primary Care Provider] - 1-2 days Time of Disposition: 18:28
[2023-12-21 18:30] VITALS: TEMP 97.9
[2023-12-21 19:41] VITALS: BP 122/67; PULSE 88; RESP 18
== END 2023-12-21 19:42 | disposition home or self-care (01) ==
LOC: EC 15:28
DX: R07.89 Other chest pain (principal); Z88.2 Allergy status to sulfonamides
CPT/HCPCS: 36415; 93005; 85379; 80053; 83735; 84484; 85025; 85610; 85730; 71046; 99285; 96374; J1885